=== PATIENT | female | born 1950 | race Caucasian/White ===

== ENCOUNTER 2018-11-06 02:04 | Outpatient (CLI) | payer MEDICARE, SELFPAY ==
[2018-11-06 11:13] LABS: Abs Immature Grans 0.02 k/cumm (0.0-0.09); Absolute Basophil Count 0.05 k/cumm (0.0-0.2); Absolute Eosinophil Count 0.17 k/cumm (0.0-0.7); Absolute Lymphocyte Count 2.63 k/cumm (1.2-3.4); Absolute Neutrophil Count 5.29 k/cumm (1.2-6.7); Basophils % 0.6; Eosinophils % 1.9; HGB 13.4 g/dL (12.0-15.5); Immature Grans % 0.2; Lymphocytes % 29.7; Mean Corp. HGB Concentration 32.7 g/dL (32.0-36.0); Mean Corpuscular Hemoglobin 30.8 pg (27.0-33.0); Mean Corpuscular Volume 94.3 fL (80-95); Mean Platelet Volume 11.1 fL (8.0-11.0); Monocytes % 7.9; Neutrophils % 59.7; Platelet Count 281 x1000/uL (130-400); RBC 4.35 m/cumm (4.00-5.20); RBC Distribution Width 15.4 % (11.7-14.6); White Blood Cell Count 8.86 k/cumm (4.4-10.8)
[2018-11-06 11:25] LABS: ALT 18 U/L (12-78); AST 17 U/L (15-37); Albumin 3.4 g/dL (3.4-5.0); Alkaline Phosphatase 73 U/L (46-116); Anion Gap 9.5 mmol/L (3-11); BUN 20 mg/dL (7-18); Bilirubin, Total 0.3 mg/dL (0.2-1.0); CO2 25.5 mmol/L (21.0-32.0); CREATININE 1.23 mg/dL (0.55-1.02); Calcium 9.4 mg/dL (8.5-10.1); Chloride 105 mmol/L (98-107); Estimated GFR 43.82 (mL/min/1.73m2); Glucose 82 mg/dL (70-100); Potassium 4.8 mmol/L (3.5-5.1); Sodium 140 mmol/L (136-145)
== END 2018-11-06 02:24 ==
PROVIDERS: PCP Nurse Practitioner Family; Visit Provider Internal Medicine
DX: M06.9 Rheumatoid arthritis, unspecified (principal); Z79.899 Other long term (current) drug therapy
CPT/HCPCS: 36415; 80053; 85025

== ENCOUNTER 2019-02-05 01:34 | Outpatient (CLI) | payer MEDICARE, SELFPAY ==
[2019-02-05 10:49] LABS: Abs Immature Grans 0.03 k/cumm (0.0-0.09); Absolute Basophil Count 0.06 k/cumm (0.0-0.2); Absolute Eosinophil Count 0.06 k/cumm (0.0-0.7); Absolute Lymphocyte Count 2.76 k/cumm (1.2-3.4); Absolute Monocyte Count 0.63 k/cumm (0.11-0.7); Absolute Neutrophil Count 4.78 k/cumm (1.2-6.7); Basophils % 0.7; Eosinophils % 0.7; HGB 13.7 g/dL (12.0-15.5); Immature Grans % 0.4; Lymphocytes % 33.2; Mean Corp. HGB Concentration 32.6 g/dL (32.0-36.0); Mean Corpuscular Hemoglobin 29.6 pg (27.0-33.0); Mean Corpuscular Volume 90.7 fL (80-95); Mean Platelet Volume 10.1 fL (8.0-11.0); Monocytes % 7.6; Neutrophils % 57.4; Platelet Count 285 x1000/uL (130-400); RBC 4.63 m/cumm (4.00-5.20); RBC Distribution Width 15.2 % (11.7-14.6); White Blood Cell Count 8.32 k/cumm (4.4-10.8)
[2019-02-05 11:40] LABS: ALT 20 U/L (12-78); AST 19 U/L (15-37); Albumin 3.6 g/dL (3.4-5.0); Alkaline Phosphatase 76 U/L (46-116); Anion Gap 10.3 mmol/L (3-11); BUN 21 mg/dL (7-18); Bilirubin, Total 0.4 mg/dL (0.2-1.0); CO2 24.7 mmol/L (21.0-32.0); CREATININE 1.23 mg/dL (0.55-1.02); Calcium 10.1 mg/dL (8.5-10.1); Chloride 104 mmol/L (98-107); Estimated GFR 43.68 (mL/min/1.73m2); Glucose 93 mg/dL (70-100); Potassium 4.8 mmol/L (3.5-5.1); Sodium 139 mmol/L (136-145); Total Protein 7.4 g/dL (6.4-8.2)
== END 2019-02-05 01:54 ==
PROVIDERS: PCP Nurse Practitioner Family; Visit Provider Internal Medicine
DX: M06.9 Rheumatoid arthritis, unspecified (principal); Z79.899 Other long term (current) drug therapy
CPT/HCPCS: 36415; 80053; 85025

== ENCOUNTER 2019-05-26 01:34 | Outpatient (CLI) | payer MEDICARE, SELFPAY ==
[2019-05-26 11:28] LABS: Abs Immature Grans 0.02 k/cumm (0.0-0.09); Absolute Basophil Count 0.04 k/cumm (0.0-0.2); Absolute Eosinophil Count 0.09 k/cumm (0.0-0.7); Absolute Lymphocyte Count 2.35 k/cumm (1.2-3.4); Absolute Monocyte Count 0.32 k/cumm (0.11-0.7); Absolute Neutrophil Count 4.66 k/cumm (1.2-6.7); Basophils % 0.5; Eosinophils % 1.2; HCT 40.3 % (36.0-46.0); HGB 13.3 g/dL (12.0-15.5); Immature Grans % 0.3; Lymphocytes % 31.4; Mean Corpuscular Hemoglobin 31.1 pg (27.0-33.0); Mean Corpuscular Volume 94.4 fL (80-95); Mean Platelet Volume 10.6 fL (8.0-11.0); Monocytes % 4.3; Neutrophils % 62.3; Platelet Count 278 x1000/uL (130-400); RBC 4.27 m/cumm (4.00-5.20); RBC Distribution Width 14.7 % (11.7-14.6); White Blood Cell Count 7.48 k/cumm (4.4-10.8)
[2019-05-26 11:34] LABS: ALT 21 U/L (12-78); AST 17 U/L (15-37); Albumin 2.6 g/dL (3.4-5.0); Alkaline Phosphatase 65 U/L (46-116); Anion Gap 11.7 mmol/L (3-11); BUN 20 mg/dL (7-18); Bilirubin, Total 0.3 mg/dL (0.2-1.0); CO2 22.3 mmol/L (21.0-32.0); CREATININE 1.17 mg/dL (0.55-1.02); Calcium 8.8 mg/dL (8.5-10.1); Chloride 107 mmol/L (98-107); Estimated GFR 46.28 (mL/min/1.73m2); Glucose 101 mg/dL (70-100); Potassium 4.7 mmol/L (3.5-5.1); Sodium 141 mmol/L (136-145); Total Protein 7.2 g/dL (6.4-8.2)
== END 2019-05-26 01:54 ==
PROVIDERS: PCP Nurse Practitioner Family; Visit Provider Internal Medicine
DX: M06.9 Rheumatoid arthritis, unspecified (principal); Z79.899 Other long term (current) drug therapy
CPT/HCPCS: 36415; 80053; 85025

== ENCOUNTER 2019-09-24 00:37 | Outpatient (CLI) | payer MEDICARE, SELFPAY ==
[2019-09-24 10:12] LABS: Abs Immature Grans 0.02 k/cumm (0.0-0.09); Absolute Basophil Count 0.05 k/cumm (0.0-0.2); Absolute Eosinophil Count 0.06 k/cumm (0.0-0.7); Absolute Lymphocyte Count 2.35 k/cumm (1.2-3.4); Absolute Monocyte Count 0.47 k/cumm (0.11-0.7); Absolute Neutrophil Count 4.98 k/cumm (1.2-6.7); Basophils % 0.6; Eosinophils % 0.8; HGB 13.5 g/dL (12.0-15.5); Immature Grans % 0.3; Lymphocytes % 29.6; Mean Corp. HGB Concentration 32.9 g/dL (32.0-36.0); Mean Corpuscular Hemoglobin 31.2 pg (27.0-33.0); Mean Corpuscular Volume 94.7 fL (80-95); Mean Platelet Volume 10.2 fL (8.0-11.0); Monocytes % 5.9; Neutrophils % 62.8; Platelet Count 316 x1000/uL (130-400); RBC 4.33 m/cumm (4.00-5.20); RBC Distribution Width 15.7 % (11.7-14.6); White Blood Cell Count 7.93 k/cumm (4.4-10.8)
[2019-09-24 10:24] LABS: ALT 26 U/L (14-59); AST 22 U/L (15-37); Albumin 3.7 g/dL (3.4-5.0); Alkaline Phosphatase 63 U/L (46-116); Anion Gap 11.1 mmol/L (3-11); BUN 19 mg/dL (7-18); Bilirubin, Total 0.4 mg/dL (0.2-1.0); CO2 24.9 mmol/L (21.0-32.0); CREATININE 1.19 mg/dL (0.55-1.02); Calcium 9.1 mg/dL (8.5-10.1); Chloride 105 mmol/L (98-107); Estimated GFR 45.38 (mL/min/1.73m2); Glucose 110 mg/dL (74-106); Sodium 141 mmol/L (136-145); Total Protein 7.3 g/dL (6.4-8.2)
== END 2019-09-24 00:57 ==
PROVIDERS: PCP Nurse Practitioner Family; Visit Provider Internal Medicine
DX: M06.9 Rheumatoid arthritis, unspecified (principal); Z79.899 Other long term (current) drug therapy
CPT/HCPCS: 36415; 80053; 85025

== ENCOUNTER 2019-11-02 07:49 | Emergency (ER) | payer MEDICARE, SELFPAY ==
[2019-11-02 07:53] VITALS: BP 127/75; PULSE 117; RESP 14; TEMP 36.5; O2SAT 97
--- NOTE | 2019-11-02 08:15 | ED.GENADUL_ITS ---
Discharge Plan Disposition Patient Disposition: HOME Condition: Stable Discharge Details Chief Complaint: GI Bleed Clinical Impression: Acute diverticulitis Primary Care Provider: Neema Larose ED Provider: Neftali Dawn Home Meds and New Rx's Prescriptions: New amoxicillin-pot clavulanate 875-125 mg tablet 1 tab PO BID 10 Days Qty: 20 RF: 0 Continued methotrexate sodium 2.5 MG tablet 3 tab PO QWEEK RF: 0 folic acid 1 MG tablet 1 mg PO DAILY RF: 0 hydroxychloroquine 200 MG tablet 200 mg PO DAILY RF: 0 aspirin [Aspir-81] 81 MG tablet,delayed release (DR/EC) 81 mg PO DAILY RF: 0 acetaminophen 650 MG tablet extended release 650 mg PO Q8H PRN (Reason: Pain) Qty: 15 RF: 0 Discharge Instructions Instructions: Diverticulitis (ED), Diverticulitis Diet (ED) Additional Instructions: Please call Dr. Woodard's office prior to restarting your methotrexate. Take Augmentin as prescribed, next dose will be this evening. I recommend you take an bcmu-wch-coqnbwv probiotic or live culture yogurt once daily while on this medication. Return to the emergency department for increased abdominal pain, rectal bleeding, or any other acute concerns. Medical Decision Making 68-year-old female presents from home with crampy lower abdominal pain, tenesmus, intermittent bright red bloody stools that started yesterday. She states approximate 5-6 episodes. She has not had syncope, she denies abdominal pain, no fever. She states that due to a fear of anesthesia, stemming from a childhood appendectomy, she has not had previous colonoscopy. Her past medical history is notable for seropositive rheumatoid arthritis for which she takes methotrexate (skipped yesterday's dose), hydroxychloroquine, daily baby aspirin, no current steroids. She is afebrile, her pulse is approximately 115, blood pressure 127/75. She does not exhibit significant abdominal tenderness, but does have dark bloody stool that is guaiac positive on exam. Differential diagnosis includes diverticulitis, mass, colitis. Patient had IV access established, screening laboratories obtained, given fluid bolus and referred for CT of the abdomen. White blood cell count is elevated 15, hematocrit normal at 43.7. Platelets 290. She has chronic renal insufficiency which is unchanged and creatinine is 1.2. LFTs unremarkable. Urinalysis without significant finding. CT does reveal acute diverticulitis of the transverse and descending colon. Given the patient's chronic renal insufficiency, rheumatoid arthritis, will opt to treat her with Augmentin rather than ciprofloxacin and Flagyl. She is tolerating liquids and solids by mouth. She is stable for outpatient management. Discussed with her anticipated course of resolution as well as return indications. ECG Data Attestation: I personally reviewed and interpreted this ECG (s) as follows: Prior ECG tracings: available for review Interpretation: Sinus tachycardia with a rate of 105, the QRS is noted to have a right bundle branch block pattern, similar to that of April 27, 2017, with repolarization abnormalities, no ST segment elevations noted. HPI General Mode of arrival: ambulatory . Date/Time Provider Initiated Documentation: 11/02/19 07:53 . Limitations to Documentation: no limitations . Information obtained by: patient . History of Present Illness 68 year old F presents to the emergency department with the chief complaint of Abdominal cramps and bloody stool, described as mild and moderate, Quality is described as other (Crampy), and is localized to the abdomen. Patient reports no radiation. Patient started experiencing this hour(s) and it has been intermittent. No relieving factors improve symptom(s), No exacerbating factors reported . Patient notes denies chest pain, fever/chills, malaise, nausea/vomiting, shortness of breath and syncope. Patient did receive the following treatments prior to arrival, none Related Data Home Medications Medication Instructions Recorded Confirmed folic acid 1 mg PO DAILY tab-cap 02/11/13 11/02/19 methotrexate sodium 3 tab PO QWEEK tab 02/11/13 11/02/19 aspirin [Aspir-81] 81 mg PO DAILY tab-cap 03/26/14 11/02/19 hydroxychloroquine 200 mg PO DAILY tab-cap 03/26/14 11/02/19 acetaminophen 650 mg PO Q8H PRN #15 tablet.er 04/18/17 11/02/19 amoxicillin-pot clavulanate 1 tab PO BID 10 Days #20 tab 11/02/19 Previous Rx's Medication Instructions Recorded acetaminophen 650 mg PO Q8H PRN #15 tablet.er 04/18/17 amoxicillin-pot clavulanate 1 tab PO BID 10 Days #20 tab 11/02/19 Allergies Allergy/AdvReac Type Severity Reaction Status Date / Time levofloxacin Allergy Rash/itchin Unverified 11/02/19 07:57 g indomethacin AdvReac Intermediate GI Upset Unverified 11/02/19 07:57 General Stated Complaint: GI Bleed MARY: 3 Review of Systems Narrative: No history of colonoscopy, due to fear of anesthesia. No recent illness. 8 systems reviewed and otherwise negative [facility] Medical History Hyperlipidemia (Chronic) Osteopenia (Inactive) Rheumatoid arthritis (Chronic 01/12/13) Followed by water engineer Dr. Venkat Woodard at [facility] Social History Smoking/Tobacco Use Status: Current every day Tobacco Type: cigarettes Alcohol Intake: never Drug use: Never Substance use type: does not use Do you feel safe at home: Yes Do you feel safe in your relationship?: Yes Exam Narrative Exam Narrative: GEN: awake, alert, oriented 3. Pleasant, well groomed, interactive. HEAD: Normocephalic, atraumatic ENT: Mucous membranes moist, oropharynx unremarkable, External ear exam unremarkable EYES: PERRL, EOMI NECK: Full ROM, no ALESHA, no menigismus CHEST/RESP: Nontender, clear to auscultation bilateral, no wheeze/rhonchi/rales CARDIOVASCULAR: Regular, tachycardic, no murmur, rub laura. 2+ Rad pulse laurel ateral ABDOMEN: Soft, nontender, no mass. +Bowel sounds. Rectal exam there is no mass, no tenderness, dark mucus was guaiac positive EXT: Full ROM, no edema, no rash Neuro: Grossly normal neurologic exam, conversant, interactive. Psych: Speech fluent, thoughts congruent, affect normal Course Vital Signs Vital signs: Vital Signs Temperature 36.5 C 11/02/19 07:53 Pulse 117 H 11/02/19 07:53 Respiratory Rate 14 11/02/19 07:53 Blood Pressure 127/75 11/02/19 07:53 Pulse Oximetry 97 11/02/19 07:53 Temperature 36.5 C 11/02/19 07:53 Temperature Source Temporal Artery Scan 11/02/19 07:53 Pulse 117 H 11/02/19 07:53 Respiratory Rate 14 11/02/19 07:53 Respiratory Effort Non-Labored 11/02/19 07:55 Blood Pressure 127/75 11/02/19 07:53 Blood Pressure Position Sitting 11/02/19 07:53 Pulse Oximetry 97 11/02/19 07:53 Oxygen Delivery Method Room Air 11/02/19 07:53 Oxygen Flow Rate 0 11/02/19 07:53 Pain Level 0 11/02/19 07:53
[2019-11-02] MEDS: Breeza Beverage 473 ML BTL PO ×2 (08:21→08:22)
[2019-11-02] MEDS: Omnipaque 350 MG/ML 50 ML BTL PO (08:21)
[2019-11-02] MEDS: Normal Saline Flush 10 ML SYR IVP (08:25)
[2019-11-02] MEDS: Normal Saline 1,000 ML 125 ML IV (08:25)
[2019-11-02 08:32] LABS: Abs Immature Grans 0.04 k/cumm (0.0-0.09); Absolute Monocyte Count 0.78 k/cumm (0.11-0.7); Basophils % 0.3; HCT 43.7 % (36.0-46.0); HGB 14.7 g/dL (12.0-15.5); Immature Grans % 0.3 %; Lymphocytes % 14.8; Mean Corp. HGB Concentration 33.6 g/dL (32.0-36.0); Mean Corpuscular Hemoglobin 31.7 pg (27.0-33.0); Mean Corpuscular Volume 94.2 fL (80-95); Mean Platelet Volume 10.1 fL (8.0-11.0); Neutrophils % 79.6; Platelet Count 290 x1000/uL (130-400); RBC 4.64 m/cumm (4.00-5.20); RBC Distribution Width 15.8 % (11.7-14.6); White Blood Cell Count 15.64 k/cumm (4.4-10.8)
[2019-11-02 08:33] LABS: Absolute Basophil Count 0.05 k/cumm (0.0-0.2); Absolute Lymphocyte Count 2.31 k/cumm (1.2-3.4); Absolute Neutrophil Count 12.45 k/cumm (1.2-6.7)
[2019-11-02 08:51] LABS: ALT 68 U/L (14-59); AST 30 U/L (15-37); Albumin 3.8 g/dL (3.4-5.0); Alkaline Phosphatase 75 U/L (46-116); Anion Gap 11.5 mmol/L (3-11); BUN 17 mg/dL (7-18); Bilirubin, Total 0.5 mg/dL (0.2-1.0); CO2 24.5 mmol/L (21.0-32.0); Calcium 9.5 mg/dL (8.5-10.1); Chloride 103 mmol/L (98-107); Estimated GFR 44.95 (mL/min/1.73m2); Glucose 124 mg/dL (74-106); Magnesium 1.8 mg/dL (1.8-2.4); Sodium 139 mmol/L (136-145); Total Protein 8.2 g/dL (6.4-8.2)
[2019-11-02 08:55] LABS: Prothrombin Time 10.2 sec (9.3-11.0)
[2019-11-02 09:59] LABS: Bilirubin Negative (Negative); Blood Trace-intact (Negative); Clarity Clear (Clear); Glucose Negative (Negative); Ketones Negative (Negative); Leukocyte Esterase Negative (Negative); Nitrite Negative (Negative); Urobilinogen 0.2 EU/dL (Up TO 0.2)
[2019-11-02 10:07] LABS: Bacteria Rare HPF (Negative); Crystals Negative HPF (Negative); Epithelial Cells Rare HPF (Negative); Mucus Trace (Negative); RBC 0-2 HPF (0-2); WBC 0-2 HPF (0-5)
[2019-11-02 10:08] LABS: C & S Indicated? No; Casts Negative LPF (Negative)
--- NOTE | 2019-11-02 11:18 | DI.CT_ITS ---
EXAM: CT ABDOMEN PELVIS W CLINICAL HISTORY: abd cramps, bloody stool, no colonoscopy. TECHNIQUE: Imaging Protocol: Axial computed tomography images with coronal and sagittal reformatted images were created and reviewed CONTRAST MATERIAL: Intravenous: Omnipaque 350 Contrast volume:50 cc Oral: yes COMPARISON: ABD PELVIS WITH CONTRAST from 05/06/2017 FINDINGS: ABDOMEN: Lung Bases: Normal where visualized. Liver: Normal density. No measurable mass. Gallbladder and biliary tract: No radiodense calculus or dilation. Pancreas: Normal density, no abnormal calcifications or inflammatory process. Spleen: Normal. Kidneys: Normal size, contour and axis. No radiodense stones or obstructive uropathy. There are bilat eral renal cysts. Adrenal glands: Incidentally noted adrenal lesion(s) < or = 1.0cm. If asymptomatic follow-up imaging is not needed. (PQRS Quality Measure- [employer], Vol.80,No.220, August Rules and R egulations.) Abdominal Aorta: Atherosclerosis. No aneurysmal dilatation. PELVIS: Bladder: Symmetric distention, no gross wall thickening. Bowel: There is diverticulosis of the colon. There is bowel wall thickening and pericolonic inflamma tory change seen in the distal transverse colon and the descending colon into the proximal sigmoid co rick. The findings are most consistent with acute diverticulitis. No free air or abscess is present. No evidence of bowel obstruction is seen. There is no evidence of an acute appendicitis. Peritoneal cavity: No ascites, collection or mesenteric inflammatory response. Bones: Degenerative changes are seen in the spine. Reproductive organs: Within normal limits. Lymph nodes: Unremarkable. Impression: Findings consistent with acute diverticulitis involving the distal transverse colon, descending colon and proximal sigmoid colon. No abscess or free air. Findings were discussed with the emergency department on the date of the examination. DATA REPOSITORY: All CT scans at this facility are submitted to the National Radiology Data Registry (NRDR) Dose Index Registry (DIR) with the [employer] (ACR). RADIATION OPTIMIZATION: All CT scans at this facility use at least one of these dose optimization te chniques: automated exposure control; mA and/or kV adjustment per patient size (includes targeted exa ms where dose is matched to clinical indication); or iterative reconstruction.
[2019-11-02] MEDS: Omnipaque 350 MG/ML 100 ML BTL 50 ML IJ (11:25)
[2019-11-02] MEDS: Amoxicillin 875/Clav. 125 TAB PO (11:58)
[2019-11-02 12:26] VITALS: BP 127/75; PULSE 117; RESP 14; TEMP 36.5; O2SAT 97
[2019-11-02 12:28] VITALS: BP 158/90; PULSE 87; O2SAT 98
== END 2019-11-02 12:35 | disposition home or self-care (01) ==
PROVIDERS: Emergency Provider Emergency Medicine; PCP Nurse Practitioner Family
DX: K57.32 Diverticulitis of large intestine without perforation or abscess without bleeding (principal)
CPT/HCPCS: 80053; 86850; 86900; 86901; 93005; 99285; 74177; 81003; 81015; 83735; 85025; 85610; 93010; 99284; J3490; Q9967

== ENCOUNTER 2019-11-11 02:17 | Outpatient (CLI) | payer MEDICARE, SELFPAY ==
[2019-11-11 11:36] LABS: Hemoglobin A1C 5.9 % (3.8-5.6)
[2019-11-11 11:59] LABS: Calculated LDL 182 mg/dL; Cholesterol 250 mg/dL (<200); HDL Cholesterol 48 mg/dL (40-60); Triglyceride 103 mg/dL (<150)
== END 2019-11-11 02:37 ==
PROVIDERS: PCP Nurse Practitioner Family; Visit Provider Nurse Practitioner Family
DX: R73.01 Impaired fasting glucose (principal); E78.5 Hyperlipidemia, unspecified
CPT/HCPCS: 36415; 80061; 83036

== ENCOUNTER 2019-11-19 14:12 | Outpatient (REF) | payer MEDICARE, SELFPAY | END 2019-11-19 14:32 | LOC: LBN 14:12 | PROVIDERS: PCP Nurse Practitioner Family; Visit Provider Nurse Practitioner Family | DX: N76.0 Acute vaginitis (principal) | CPT/HCPCS: 87480; 87510; 87660 ==

== ENCOUNTER 2020-05-19 19:38 | Outpatient (REF) | payer MEDICARE, SELFPAY ==
[2020-05-19 21:16] LABS: ALT 19 U/L (14-59); AST 20 U/L (15-37); Albumin 3.9 g/dL (3.4-5.0); Alkaline Phosphatase 54 U/L (46-116); Anion Gap 11.3 mmol/L (3-11); BUN 21 mg/dL (7-18); Bilirubin, Total 0.3 mg/dL (0.2-1.0); CO2 24.7 mmol/L (21.0-32.0); CREATININE 1.28 mg/dL (0.55-1.02); Calcium 9.3 mg/dL (8.5-10.1); Chloride 104 mmol/L (98-107); Estimated GFR 41.59 (mL/min/1.73m2); Glucose 89 mg/dL (74-106); Potassium 4.6 mmol/L (3.5-5.1); Sodium 140 mmol/L (136-145); Total Protein 7.4 g/dL (6.4-8.2)
[2020-05-19 21:38] LABS: Vitamin D 25 Total 31.1 ng/ml (30-100)
== END 2020-05-19 19:58 ==
LOC: LBN 19:38
PROVIDERS: PCP Nurse Practitioner Family; Visit Provider Nurse Practitioner Family
DX: M85.80 Other specified disorders of bone density and structure, unspecified site (principal); M06.9 Rheumatoid arthritis, unspecified
CPT/HCPCS: 80053; 82306

== ENCOUNTER 2020-06-01 03:29 | Outpatient (CLI) | payer MEDICARE, SELFPAY ==
[2020-06-01 12:26] LABS: Abs Immature Grans 0.03 10^3/uL (0.0-0.06); Absolute Basophil Count 0.09 10^3/uL (0.0-0.2); Absolute Monocyte Count 0.63 10^3/uL (0.1-0.8); Absolute Neutrophil Count 6.78 10^3/uL (1.2-6.7); Basophils % 0.8; HCT 40.3 % (36.0-46.0); HGB 13.2 g/dL (11.2-15.7); Immature Grans % 0.3; Lymphocytes % 29.2; MCH 31.1 pg (27.0-33.0); MCHC 32.8 % (32.0-36.0); MPV 10.3 fL (8.0-11.0); Monocytes % 5.9; Neutrophils % 63.8; Nucleated RBC 0 %; Platelet Count 287 10^3/uL (130-400); RBC 4.24 10^6/uL (3.93-5.22); RDW 15.2 % (11.7-14.6); RDW-SD 52.2 fL; WBC 10.63 10^3/uL (4.4-10.8)
[2020-06-01 12:43] LABS: Calculated LDL 71 mg/dL (<100); Cholesterol 157 mg/dL (<200); HDL Cholesterol 58 mg/dL (40-60); Triglyceride 142 mg/dL (<150)
== END 2020-06-01 03:49 ==
PROVIDERS: PCP Nurse Practitioner Family; Visit Provider Nurse Practitioner Family
DX: E78.5 Hyperlipidemia, unspecified (principal); M06.9 Rheumatoid arthritis, unspecified
CPT/HCPCS: 36415; 80061; 85025

== ENCOUNTER 2020-06-28 03:36 | Outpatient (CLI) | payer MEDICARE, SELFPAY ==
--- NOTE | 2020-06-28 08:45 | DI.MAMMO_ITS ---
EXAM: MG MAMMO SCREENING CLINICAL HISTORY: screening,Z12.39 TECHNIQUE: Bilateral full field digital CC and MLO mammographic images were obtained with 3D tomosyn thesis and utilizing computer aided detection (CAD). COMPARISON: None available.. FINDINGS: Masses/Architectural Distortion: None seen. Microcalcifications: No suspicious pleomorphic-type are seen. Scattered benign appearing calcificatio ns bilaterally. Skin Thickening/Nipple Retraction: None. IMPRESSION: 1. no specific features of malignancy noted. 2. Unless there is more urgent need, screening mammography is recommended, as per [employer] [place] [employer] guidelines. BI-RADS Category 2 - Benign Findings Breast Density - Category B - Scattered areas of fibroglandular density A negative radiographic report should not delay biopsy if a dominant or clinically suspicious mass is present. Up to ten percent of cancers are not identified on mammography. A negative report may reinforce clinical impression. Adenosis and dense breasts may obscure an underlying neoplasm. False positive reports average 6 to 10%. Patient will receive a letter notifying them of these results.
== END 2020-06-28 03:56 ==
PROVIDERS: PCP Nurse Practitioner Family; Visit Provider Nurse Practitioner Family
DX: Z12.31 Encounter for screening mammogram for malignant neoplasm of breast (principal); R92.2 Inconclusive mammogram
CPT/HCPCS: 77063; 77067

== ENCOUNTER 2020-07-11 11:46 | Outpatient (REF) | payer MEDICARE, SELFPAY ==
[2020-07-11 14:14] LABS: Anion Gap 8.9 mmol/L (3-11); BUN 16 mg/dL (7-18); CO2 25.1 mmol/L (21.0-32.0); Calcium 9.2 mg/dL (8.5-10.1); Chloride 107 mmol/L (98-107); Estimated GFR 44.81 (mL/min/1.73m2); Glucose 88 mg/dL (74-106); Potassium 4.5 mmol/L (3.5-5.1); Sodium 141 mmol/L (136-145)
== END 2020-07-11 12:06 ==
LOC: LBN 11:46
PROVIDERS: PCP Nurse Practitioner Family; Visit Provider Nurse Practitioner Family
DX: I10 Essential (primary) hypertension (principal)
CPT/HCPCS: 80048

== ENCOUNTER 2020-10-18 03:03 | Outpatient (CLI) | payer MEDICARE, SELFPAY ==
[2020-10-18 13:07] LABS: HCT 37.3 % (36.0-46.0); HGB 12.2 g/dL (11.2-15.7); MCHC 32.7 % (32.0-36.0); MCV 94.7 fL (80-95); MPV 10.1 fL (8.0-11.0); Platelet Count 335 10^3/uL (130-400); RBC 3.94 10^6/uL (3.93-5.22); RDW-SD 51.9 fL; WBC 9.48 10^3/uL (4.4-10.8)
[2020-10-18 13:16] LABS: ALT 19 U/L (14-59); AST 16 U/L (15-37); Albumin 3.5 g/dL (3.4-5.0); Alkaline Phosphatase 49 U/L (46-116); Anion Gap 9.4 mmol/L (3-11); BUN 20 mg/dL (7-18); Bilirubin, Total 0.2 mg/dL (0.2-1.0); CO2 24.6 mmol/L (21.0-32.0); CREATININE 1.29 mg/dL (0.55-1.02); Chloride 106 mmol/L (98-107); Estimated GFR 41.22 (mL/min/1.73m2); Glucose 93 mg/dL (74-106); Potassium 4.6 mmol/L (3.5-5.1); Sodium 140 mmol/L (136-145); Total Protein 7.1 g/dL (6.4-8.2)
== END 2020-10-18 03:23 ==
PROVIDERS: PCP Nurse Practitioner Family; Visit Provider Internal Medicine
DX: M06.9 Rheumatoid arthritis, unspecified (principal); Z79.899 Other long term (current) drug therapy; R79.89 Other specified abnormal findings of blood chemistry
CPT/HCPCS: 36415; 80053; 85027

== ENCOUNTER 2021-02-08 14:58 | Emergency (ER) | payer MEDICARE, SELFPAY ==
[2021-02-08] VITALS (36 sets, daily range): BP systolic 107–208; BP diastolic 66–124; PULSE 66–89; RESP 14–26; TEMP 36.5; O2SAT 97–100
--- NOTE | 2021-02-08 15:15 | RT.EKG_ITS ---
APPROVED REPORT Exam: Resting ECG Patient Location: E HR:79 bpm ECG Measurements Heart Rate 79 AXIS CO 129 P 69 QRSd 142 QRS 68 QT 419 T 32 QTc 479 Conclusion Sinus rhythm...normal P axis, V-rate 60- 99 Probable left atrial enlargement...P >50mS, <-0.10mV V1 Right bundle branch block...QRSd>120, terminal axis(90,270)
--- NOTE | 2021-02-08 15:45 | DI.CT_ITS ---
EXAM: CT HEAD WO CLINICAL HISTORY: Left jaw and left arm pain. TECHNIQUE: Imaging Protocol: Axial computed tomography images with coronal and sagittal reformatted images were created and reviewed COMPARISON: No exams were available for comparison FINDINGS: There are no skull fractures nor fluid in the visualized paranasal sinuses. There is no evidence of intracranial hemorrhage, mass effect, or shift of midline structures. There are no extra-axial fluid collections. The ventricles are not enlarged or shifted and there is no blo od within the ventricular system nor within the basal cisterns. IMPRESSION: No acute intracranial findings on this noninfused CT scan of the brain. RADIATION DOSE DELIVERED: 674.64mGy.cm Total DLP DATA REPOSITORY: All CT scans at this facility are submitted to the National Radiology Data Registry (NRDR) Dose Index Registry (DIR) with the [employer] (ACR). RADIATION OPTIMIZATION: All CT scans at this facility use at least one of these dose optimization te chniques: automated exposure control; mA and/or kV adjustment per patient size (includes targeted exa ms where dose is matched to clinical indication); or iterative reconstruction.
--- NOTE | 2021-02-08 15:45 | DI.RAD_ITS ---
EXAM: XR HUMERUS LT CLINICAL HISTORY: Humerus pain. TECHNIQUE: 2D digital imaging was performed. COMPARISON: No exams were available for comparison FINDINGS: There is no evidence of fracture. No dislocation. No radiopaque foreign body. No osseous lesions. IMPRESSION: DATA REPOSITORY: RADIATION DOSE DELIVERED:
--- NOTE | 2021-02-08 15:45 | RT.EKG_ITS ---
APPROVED REPORT Exam: Resting ECG Patient Location: E HR:72 bpm ECG Measurements Heart Rate 72 AXIS NE 139 P 70 QRSd 143 QRS -39 QT 436 T 39 QTc 477 Conclusion Sinus rhythm...normal P axis, V-rate 60- 99 Right bundle branch block...QRSd>120, terminal axis(90,270)
--- NOTE | 2021-02-08 15:45 | DI.RAD_ITS ---
EXAM: XR CHEST 2V PA LATERAL CLINICAL HISTORY: Left jaw pain and left humerus pain. TECHNIQUE: 2D digital imaging was performed. COMPARISON: No exams were available for comparison FINDINGS: Heart size is normal. The mediastinum is not widened. Lungs are clear. No infiltrates nor pleural effusions. IMPRESSION: No acute pulmonary findings. DATA REPOSITORY: RADIATION DOSE DELIVERED:
--- NOTE | 2021-02-08 15:54 | ED.GENADUL_ITS ---
Discharge Plan Disposition Patient Disposition: HOME Condition: Improving Discharge Details Clinical Impression: Rheumatoid arthritis, Arm pain, left Primary Care Provider: Neema Larose ED Provider: Neftali Dawn Home Meds and New Rx's Prescriptions: Continued losartan 50 mg tablet 75 mg PO DAILY Qty: 135 RF: 4 rosuvastatin 10 mg tablet 10 mg PO DAILY Qty: 90 RF: 4 folic acid 1 MG tablet 1 mg PO DAILY RF: 0 aspirin [Aspir-81] 81 MG tablet,delayed release (DR/EC) 81 mg PO DAILY RF: 0 methotrexate sodium 2.5 mg tablet 5 mg PO QWEEK RF: 0 hydroxychloroquine 200 mg tablet 200 mg PO DAILY RF: 0 Discharge Instructions Additional Instructions: Your work-up today included CAT scan of the head, chest x-ray, x-ray of the left humerus, as well as blood work including comprehensive panel, complete blood count, cardiac troponin. May continue Tylenol as needed for pain. Apply warm heat to areas to promote circulation. Return for the development of a rash, fever, worsening pain, any other acute concerns Please follow-up with your doctor if not improving in 3 days time. Medical Decision Making 70-year-old female with history of rheumatoid arthritis presents from home with 2 to 4 days of left jaw pain and left humerus pain intermittently. Does not feel like previous flares of rheumatoid arthritis. No fall or injury. Denies chest pain or shortness of breath. She is well-appearing, interactive, no acute distress with a reassuring exam. During the exam she also noted a history of recent pounding of her heart. And correlated this with PVC noted on the monitor during my exam. Exam is otherwise unrevealing. She is in a sinus rhythm with a rate bundle-branch block. Differential gnosis is broad including unlikely, but possible CVA, ACS, metastatic lesion. Given the PVC noted, would consider sinus arrhythmia, dehydration, electrolyte abnormalities. And given that she takes methotrexate, do feel that screening blood work with CBC should be obtained. IV access established, labs obtained, patient referred for x-ray of chest and left humerus. X-ray, CT scan unremarkable. Labs are reassuring. Note of white count 12, normal CRP and troponin negative. She does appear somewhat dehydrated over baseline. Patient improved following 500 cc normal saline. She was observed on repeat troponin obtained and negative. Discussed with the patient reassuring nature of today's evaluation. She has no significant further pain and declines Tylenol at this time. We will discharge to home. She will return for recurrent or recrudescence of pain, otherwise follow-up with primary care. She is stable and improved at this time. Lab Data Lab results reviewed: Yes I reviewed the patient's lab results. Labs: Laboratory Results - last 24 hr 02/08/21 02/08/21 15:50 15:50 WBC 12.13 H RBC 4.18 Hgb 13.2 Hct 40.3 MCV 96.4 H MCH 31.6 MCHC 32.8 RDW 14.4 Plt Count 319 MPV 9.8 Immature Gran % 0.4 Neutrophils % 64.3 Lymphocytes % 29.4 Monocytes % 5.4 Eosinophils % 0.0 Basophils % 0.5 Nucleated RBC % 0 Absolute Neutrophils 7.80 H Absolute Lymphocytes 3.57 H Absolute Monocytes 0.66 Absolute Eosinophils 0.00 Absolute Basophils 0.06 Sodium 142 Potassium 4.6 Chloride 106 Carbon Dioxide 23.6 Anion Gap 12.4 H BUN 25 H Creatinine 1.4 H Estimated GFR/1.73 m2 37.39 Glucose 96 Calcium 9.7 Magnesium 2.0 Total Bilirubin 0.3 AST 18 ALT 23 Alkaline Phosphatase 64 Troponin I < 0.05 C-Reactive Protein < 0.05 Total Protein 8.1 Albumin 3.9 HPI General Mode of arrival: ambulatory . Date/Time Provider Initiated Documentation: 02/08/21 14:59 . Limitations to Documentation: no limitations . Information obtained by: patient . History of Present Illness 70 year old F presents to the emergency department with the chief complaint of 2 to 3 days left jaw and left humerus pain, described as mild, Quality is described as dull, and is localized to the face, left and upper extremity. Patient reports no radiation. Patient started experiencing this day(s) and it has been intermittent. No relieving factors improve symptom(s), No exacerbating factors reported . Patient notes denies chest pain, cough, fever/chills, headaches, loss of appetite, nausea/vomiting, rash, shortness of breath, syncope and weakness. Patient did receive the following treatments prior to arrival, none Related Data Home Medications Medication Instructions Recorded Confirmed folic acid 1 mg PO DAILY tab-cap 02/11/13 02/08/21 aspirin [Aspir-81] 81 mg PO DAILY tab-cap 03/26/14 02/08/21 hydroxychloroquine 200 mg tablet 200 mg PO DAILY tab-cap 05/19/20 02/08/21 methotrexate sodium 2.5 mg tablet 5 mg PO QWEEK tab 05/19/20 02/08/21 losartan 50 mg tablet 75 mg PO DAILY #135 tab-cap 08/22/20 02/08/21 rosuvastatin 10 mg tablet 10 mg PO DAILY #90 tab 11/28/20 02/08/21 Previous Rx's Medication Instructions Recorded losartan 50 mg tablet 75 mg PO DAILY #135 tab-cap 08/22/20 rosuvastatin 10 mg tablet 10 mg PO DAILY #90 tab 11/28/20 Allergies Allergy/AdvReac Type Severity Reaction Status Date / Time levofloxacin Allergy Rash/itchin Unverified 02/08/21 15:39 g indomethacin AdvReac Intermediate GI Upset Unverified 02/08/21 15:39 General Stated Complaint: Orthopedic MARY: 3 Review of Systems Narrative: Takes methotrexate, aspirin, losartan daily. No recent illness. No sniffles, sneeze, cough, fever, chills, chest pain, shortness of breath. No fall or injury. 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 Venkat Woodard Surgical History S/P appendectomy (~1960) Family History Mother , at 77 of alzheimers Alzheimer's dementia Heart disease Myocardial infarction Breast cancer In her 40s Father , at 88 Heart disease Stroke Brother , at 21 from cancer Cancer Unknown type Brother , at 5 from brain tumor Brain tumor Sister , at 49 of breast cancer Breast cancer Sister , in her 50s of [address] Heart disease Myocardial infarction Son No problems noted. Son No problems noted. Daughter Crohn's disease Colon cancer Daughter Crohn's disease Maternal Grandfather No problems noted. Maternal Grandmother No problems noted. Paternal Grandfather No problems noted. Paternal Grandmother No problems noted. Social History Smoking/Tobacco Use Status: Current-Occasional Tobacco Type: cigarettes Quit status: has quit before Second Hand Exposure: Yes Smoking risk assessment performed?: Yes Alcohol Intake: current Alcohol Intake frequency: holidays/special occasions only Alcohol type: beer Drug use: Never Substance use type: does not use Caregiver/Support person: No Household members: spouse Housing: house Communication Needs: None Do you need help understanding health information?: Never Pets and animals: Yes Pets and animals: dog(s) Sexually active: Yes Do you think of yourself as: straight/heterosexual Current gender identity: female What is your relationship status?: How often do you talk on the phone with friends or family?: three or more times per week How often do you get together with friends or relatives?: three or more times p er week Do you belong to any clubs or organized social groups?: no Panel score (0-1 are the most socially isolated patients): 2 What type of physical activity do you participate in: walking Duration: 45-60 minutes/day Frequency: daily Sabiha/Christian: Roman Catholic Seatbelt use: always Drive intox or ride w/intox hazmat cdl a driver: No Do you feel safe at home: Yes Do you feel safe in your relationship?: Yes History History 3 Para Hx # Term Pregnancies Multiple births 1 Hx # Pregnancies Ectopic pregnancies AB induced Hx Number of Living Children 4 AB spontaneous Exam Narrative Exam Narrative: GEN: awake, alert, oriented 3. Pleasant, well groomed, interactive. HEAD: Normocephalic, atraumatic ENT: Mucous membranes moist, oropharynx unremarkable, External ear exam unremarkable EYES: PERRL, EOMI NECK: Full ROM, no ALESHA, no menigismus CHEST/RESP: Nontender, clear to auscultation bilateral, no wheeze/rhonchi/rales CARDIOVASCULAR: RRR, no murmur, rub laura. 2+ Rad pulse bilateral ABDOMEN: Soft, nontender, no mass. +Bowel sounds EXT: Nontender and fully mobile bilaterally, no rash or swelling, full ROM, no edema, no rash Neuro: Grossly normal neurologic exam, conversant, interactive. Psych: Speech fluent, thoughts congruent, affect normal Course Vital Signs Vital signs: Vital Signs Temperature 36.5 C 02/08/21 15:10 Pulse 81 02/08/21 15:10 Respiratory Rate 16 02/08/21 15:10 Blood Pressure 141/72 H 02/08/21 15:10 Pulse Oximetry 97 02/08/21 15:10 Temperature 36.5 C 02/08/21 15:10 Temperature Source Temporal Artery Scan 02/08/21 15:10 Pulse 76 02/08/21 15:31 Pulse 82 02/08/21 15:40 Respiratory Rate 15 02/08/21 15:40 Respiratory Effort Non-Labored 02/08/21 15:35 Respiratory Depth Normal 02/08/21 15:35 Respiratory Pattern Normal 02/08/21 15:35 Blood Pressure 194/71 H 02/08/21 15:31 Blood Pressure Mean 104 02/08/21 15:31 Blood Pressure Position Sitting 02/08/21 15:10 Pulse Oximetry 99 02/08/21 15:40 Oxygen Delivery Method Room Air 02/08/21 15:10 Oxygen Flow Rate 0 02/08/21 15:10 Pain Level 3 02/08/21 15:10
[2021-02-08] MEDS: Normal Saline 1,000 ML 150 ML IV (15:58)
[2021-02-08 16:12] LABS: Abs Immature Grans 0.05 10^3/uL (0.0-0.06); Absolute Basophil Count 0.06 10^3/uL (0.0-0.2); Absolute Lymphocyte Count 3.57 10^3/uL (1.2-3.4); Basophils % 0.5; HCT 40.3 % (36.0-46.0); HGB 13.2 g/dL (11.2-15.7); Immature Grans % 0.4; Lymphocytes % 29.4; MCH 31.6 pg (27.0-33.0); MCHC 32.8 % (32.0-36.0); MCV 96.4 fL (80-95); MPV 9.8 fL (8.0-11.0); Monocytes % 5.4; Neutrophils % 64.3; Nucleated RBC 0 %; Platelet Count 319 10^3/uL (130-400); RBC 4.18 10^6/uL (3.93-5.22); RDW 14.4 % (11.7-14.6); RDW-SD 50.6 fL; WBC 12.13 10^3/uL (4.4-10.8)
[2021-02-08 16:13] LABS: Absolute Monocyte Count 0.66 10^3/uL (0.1-0.8)
[2021-02-08 16:17] LABS: ALT 23 U/L (14-59); AST 18 U/L (15-37); Albumin 3.9 g/dL (3.4-5.0); Alkaline Phosphatase 64 U/L (46-116); Anion Gap 12.4 mmol/L (3-11); BUN 25 mg/dL (7-18); Bilirubin, Total 0.3 mg/dL (0.2-1.0); CO2 23.6 mmol/L (21.0-32.0); CREATININE 1.4 mg/dL (0.55-1.02); Calcium 9.7 mg/dL (8.5-10.1); Chloride 106 mmol/L (98-107); Estimated GFR 37.39 (mL/min/1.73m2); Glucose 96 mg/dL (74-106); Potassium 4.6 mmol/L (3.5-5.1); Sodium 142 mmol/L (136-145); Total Protein 8.1 g/dL (6.4-8.2)
[2021-02-08 16:26] LABS: C-Reactive Protein < 0.05 mg/dL (0.0-0.3); Troponin I < 0.05 ng/mL (<0.06)
--- NOTE | 2021-02-08 17:59 | DI.VRAD_ITS ---
PROCEDURE INFORMATION: Exam: CT Head Without Contrast Exam date and time: 02/08/2021 3:55 PM Age: 70 years old Clinical indication: Other: Left jaw and left arm pain TECHNIQUE: Imaging protocol: Computed tomography of the head without contrast. Radiation optimization: All CT scans at this facility use at least one of these dose optimization techniques: automated exposure control; mA and/or kV adjustment per patient size (includes targeted exams where dose is matched to clinical indication); or iterative reconstruction. COMPARISON: No relevant prior studies available. FINDINGS: Brain: There is mild diffuse cerebral volume loss. There is no evidence for acute intra-axial or extra-axial hemorrhage. There is no intracranial mass or mass effect. The basilar cisterns are patent. There is normal garza-white differentiation throughout the brain. There is no CT evidence of acute cortical infarct. Cerebral ventricles: There is mild ventriculomegaly in proportion to the mild diffuse cerebral volume loss. Bones/joints: Unremarkable. No acute fracture. Paranasal sinuses: Visualized sinuses are unremarkable. No fluid levels. Mastoid air cells: Visualized mastoid air cells are well aerated. Soft tissues: Unremarkable. IMPRESSION: 1. No acute intracranial process identified. 2. Mild diffuse cerebral volume loss. Dictated and Authenticated by: Dipesh Sood MD. Ordering:MAHESH Lindsay MD
--- NOTE | 2021-02-08 18:01 | DI.VRAD_ITS ---
PROCEDURE INFORMATION: Exam: XR Left Humerus Exam date and time: 02/08/2021 3:55 PM Age: 70 years old Clinical indication: Other: Humerus pain TECHNIQUE: Imaging protocol: XR Left humerus. Views: 2 or more views. COMPARISON: No relevant prior studies available. FINDINGS: Bones/joints: Osseous mineralization is normal. There are no inflammatory osseous erosive changes. The joint spaces are maintained without degenerative changes. There are no acute displaced fractures or subluxations. Soft tissues: Normal. IMPRESSION: No acute fractures identified. Dictated and Authenticated by: Dipesh Sood MD. Ordering:MAHESH Lindsay MD
--- NOTE | 2021-02-08 18:03 | DI.VRAD_ITS ---
PROCEDURE INFORMATION: Exam: XR Chest Exam date and time: 02/08/2021 3:55 PM Age: 70 years old Clinical indication: Other: Left jaw pain and left humerus pain TECHNIQUE: Imaging protocol: XR of the chest. Views: 2 views. COMPARISON: No relevant prior studies available. FINDINGS: Lungs: The lungs are clear. There is no pulmonary vascular congestion. Pleural spaces: There are no pleural effusions present. There is no evidence of pneumothorax. Heart/Mediastinum: The cardiomediastinal silhouette is within normal limits. Bones/joints: Unremarkable. IMPRESSION: No active cardiopulmonary disease identified. Dictated and Authenticated by: Dipesh Sood MD. Ordering:MAHESH Lindsay MD
[2021-02-08 19:25] LABS: Troponin I < 0.05 ng/mL (<0.06)
== END 2021-02-08 19:44 | disposition home or self-care (01) ==
PROVIDERS: Emergency Provider Emergency Medicine; PCP Nurse Practitioner Family
DX: M79.622 Pain in left upper arm (principal); R68.84 Jaw pain; I49.3 Ventricular premature depolarization; E86.0 Dehydration; M06.9 Rheumatoid arthritis, unspecified
CPT/HCPCS: 80053; 93005; 96360; 96361; 99285; 70450; 71046; 73060; 83735; 84484; 85025; 86140; 93010

== ENCOUNTER 2021-03-17 11:02 | Day surgery (SDC) | payer MEDICARE, SELFPAY ==
[2021-03-17] VITALS (7 sets, daily range): BP systolic 101–176; BP diastolic 41–91; PULSE 72–83; RESP 15–26; TEMP 36.3–36.9; O2SAT 95–99; BMI 31.8
--- NOTE | 2021-03-17 11:41 | W.ED.GENAD ---
Discharge Plan Disposition Patient Disposition: [facility] INPATIENT Condition: Stable Discharge Details Clinical Impression: Esophageal foreign body Primary Care Provider: Neema Larose ED Provider: Rosalba Mukherjee Home Meds and New Rx's Prescriptions: No Action losartan 50 mg tablet 75 mg PO DAILY Qty: 135 RF: 4 rosuvastatin 10 mg tablet 10 mg PO DAILY Qty: 90 RF: 4 folic acid 1 MG tablet 1 mg PO DAILY RF: 0 aspirin [Aspir-81] 81 MG tablet,delayed release (DR/EC) 81 mg PO DAILY RF: 0 methotrexate sodium 2.5 mg tablet 5 mg PO QWEEK RF: 0 hydroxychloroquine 200 mg tablet 200 mg PO DAILY RF: 0 Medical Decision Making 62-year-old female presents with sensation of food bolus stuck in throat since last night. Patient appears comfortable and nontoxic. Her blood pressure is high but remainder of her vitals are within normal limits. Normal oropharynx. Lungs clear. Abdomen soft nontender. Attempted effervescent granules x2 with some relief but then symptoms returned. Patient has been unable to swallow any water or flores lashonda after this. Place an IV and gave glucagon IV. Soft tissue neck x-ray notes slightly thickened contour of the epiglottis but clinically does not appear consistent with epiglottitis as she denies any fever, sore throat and she is not drooling. She denies any change in states she is still unable to swallow any water or flores lashonda. Chest x-ray negative for acute findings. Case discussed with surgery on-call who will plan to take patient to the OR. Medical Records Medical records reviewed: Yes I reviewed the patient's medical records. Imaging Data Radiologic Study: Radiologist's impression: XR SOFT TISSUE NECK CLINICAL HISTORY: difficulty swallowing, r/o foreign body TECHNIQUE: COMPARISON: No exams were available for comparison FINDINGS: AP and lateral soft tissue views of the neck were obtained. The epiglottis has a slightly thickened contour. Possibility of epiglottitis is raised, please correlate clinically. No other significant soft tissue abnormality identified. No evidence of retro pharyngeal mass or thickening. XR CHEST 2V PA LATERAL CLINICAL HISTORY: difficulty swallowing, r/o foreign body TECHNIQUE: 2D digital imaging was performed. COMPARISON: CR,XR XR CHEST 2V PA LATERAL from 02/08/2021 FINDINGS: The heart is not enlarged. The lungs are clear and well expanded. No pleural effusion seen. Mediastinal contours appear intact. IMPRESSION: Normal chest. HPI General Mode of arrival: ambulatory. Date/Time Provider Initiated Documentation: 03/17/21 11:21. Limitations to Documentation: no limitations. Information obtained by: patient. HPI Narrative: Patient is a 70-year-old female who presents to the ED with a complaint of the sensation of food stuck in her throat since last night. Patient states she was eating ham for dinner when she felt that it became stuck. She states she has not been unable to eat and drink since then as she is unable to swallow and keep any liquids or food down. She states when she attempts to swallow the liquid or food come directly back up. She denies any sore throat, vomiting, difficulty breathing, chest pain or abdominal pain. Related Data Home Medications Medication Instructions Recorded Confirmed folic acid 1 mg PO DAILY tab-cap 02/11/13 03/17/21 aspirin [Aspir-81] 81 mg PO DAILY tab-cap 03/26/14 03/17/21 hydroxychloroquine 200 mg tablet 200 mg PO DAILY tab-cap 05/19/20 03/17/21 methotrexate sodium 2.5 mg tablet 5 mg PO QWEEK tab 05/19/20 03/17/21 losartan 50 mg tablet 75 mg PO DAILY #135 tab-cap 08/22/20 03/17/21 rosuvastatin 10 mg tablet 10 mg PO DAILY #90 tab 11/28/20 03/17/21 Previous Rx's Medication Instructions Recorded losartan 50 mg tablet 75 mg PO DAILY #135 tab-cap 08/22/20 rosuvastatin 10 mg tablet 10 mg PO DAILY #90 tab 11/28/20 Allergies Allergy/AdvReac Type Severity Reaction Status Date / Time levofloxacin Allergy Rash/itchin Unverified 03/17/21 11:08 g indomethacin AdvReac Intermediate GI Upset Unverified 03/17/21 11:08 General Stated Complaint: ThroatFB MARY: 3 Review of Systems All systems reviewed & are unremarkable except as noted in HPI and below Constitutional Constitutional: Reports as per HPI, Denies chills and Denies fever(s) Eyes Eyes: Denies blurry vision ENT Ears, Nose, Mouth, and Throat: Reports dysphagia, Denies dizziness, Denies sore throat and Denies throat swelling Cardiovascular Cardiovascular: Denies chest pain and Denies dyspnea Respiratory Respiratory: Denies cough and Denies dyspnea Gastrointestinal Gastrointestinal: Denies abdominal pain, Reports dysphagia, Denies diarrhea and Denies vomiting Genitourinary Genitourinary: Denies hematuria and Denies dysuria Musculoskeletal Musculoskeletal: Denies back pain and Denies numbness Integumentary/Breasts Skin/Breast: Denies lesions and Denies rash Neurologic Neurologic: Denies dizziness, Denies localized weakness and Denies numbness Allergic/Immunologic Allergic/Immunologic: Denies throat swelling [facility] Medical History Chronic kidney disease Followed by [facility] Nephrology Essential hypertension Generalized anxiety disorder Hyperlipidemia Major depressive disorder Osteopenia Prediabetes Rheumatoid arthritis Followed by [facility] real estate specialist Dr. Venkat Woodard Surgical History S/P appendectomy (~1960) Family History Mother , at 77 of alzheimers Alzheimer's dementia Heart disease Myocardial infarction Breast cancer In her 40s Father , at 88 Heart disease Stroke Brother , at 21 from cancer Cancer Unknown type Brother , at 5 from brain tumor Brain tumor Sister , at 49 of breast cancer Breast cancer Sister , in her 50s of [place] Heart disease Myocardial infarction Son No problems noted. Son No problems noted. Daughter Crohn's disease Colon cancer Daughter Crohn's disease Maternal Grandfather No problems noted. Maternal Grandmother No problems noted. Paternal Grandfather No problems noted. Paternal Grandmother No problems noted. Social History Smoking/Tobacco Use Status: Current-Occasional Tobacco Type: cigarettes Quit status: has quit before Second Hand Exposure: Yes Smoking risk assessment performed?: Yes Alcohol Intake: current Alcohol Intake frequency: holidays/special occasions only Alcohol type: beer Drug use: Never Substance use type: does not use Caregiver/Support person: No Household members: spouse Housing: house Communication Needs: None Do you need help understanding health information?: Never Pets and animals: Yes Pets and animals: dog(s) Sexually active: Yes Do you think of yourself as: straight/heterosexual Current gender identity: female What is your relationship status?: How often do you talk on the phone with friends or family?: three or more times per week How often do you get together with friends or relatives?: three or more times per week Do you belong to any clubs or organized social groups?: no Panel score (0-1 are the most socially isolated patients): 2 What type of physical activity do you participate in: walking Duration: 45-60 minutes/day Frequency: daily Sabiha/Sabianist: Restoration Seatbelt use: always Drive intox or ride w/intox cdl driver: No Do you feel safe at home: Yes Do you feel safe in your relationship?: Yes History History 3 Para Hx # Term Pregnancies Multiple births 1 Hx # Pregnancies Ectopic pregnancies AB induced Hx Number of Living Children 4 AB spontaneous Exam Const General: cooperative, healthy appearing and no acute distress HENMT Head: normal to inspection Ears: hearing grossly normal bilaterally and external ears normal Face and sinus: normal facial exam Mouth: oral mucosae normal, tongue normal, oropharynx normal and moist mucous membranes Throat: posterior oropharynx normal Eyes General: appearance normal, both eyes and all related structures Pupils: PERRL EOM: EOM intact bilaterally Neck Neck: normal visual inspection and No submandibular swelling Lymphatic: no lymphadenopathy noted Chest Chest: normal inspection of the chest and no tenderness Resp Effort & Inspection: normal respiratory effort and able to speak in complete sentences Auscultation: clear to auscultation bilaterally Cardio Rate: regular rate Rhythm: regular rhythm GI Inspection: normal to inspection Palpation: soft, not firm, not rigid and nontender Auscultation: normal bowel sounds Skin General skin exam: no rashes or lesions noted Neuro General: patient alert, patient awake and patient oriented x3 Cognition: normal cognition Speech: speech normal Motor: muscle tone normal throughout Sensory Exam: no sensory deficits noted Extrem General: normal to inspection, full ROM, capillary refill normal, no calf tenderness bilaterally and no edema Psych Appearance: grossly normal Mental Status: mental status grossly normal Speech and Movement: speech and movement normal Affect: normal affect Course Vital Signs Vital signs: Vital Signs Temperature 98.1 F 03/17/21 11:06 Pulse 83 03/17/21 11:06 Respiratory Rate 15 03/17/21 11:06 Blood Pressure 176/91 H 03/17/21 11:06 Pulse Oximetry 98 03/17/21 11:06 Temperature 98.1 F 03/17/21 11:06 Temperature Source Skin 03/17/21 11:06 Pulse 83 03/17/21 11:06 Respiratory Rate 15 03/17/21 11:06 Respiratory Effort Non-Labored 03/17/21 11:09 Blood Pressure 176/91 H 03/17/21 11:06 Blood Pressure Position Sitting 03/17/21 11:06 Pulse Oximetry 98 03/17/21 11:06 Oxygen Delivery Method Room Air 03/17/21 11:06 Oxygen Flow Rate 0 03/17/21 11:06 Pain Level 0 03/17/21 11:06
[2021-03-17] MEDS: Simethicone/Sod Bicarb/Cit Ac, 4 gram PACKET 1 PACKET PO (12:12)
--- NOTE | 2021-03-17 12:52 | DI.RAD_ITS ---
Exam(s) XR CHEST 2V PA LATERAL EXAM: XR CHEST 2V PA LATERAL CLINICAL HISTORY: difficulty swallowing, r/o foreign body TECHNIQUE: 2D digital imaging was performed. COMPARISON: CR,XR XR CHEST 2V PA LATERAL from 02/08/2021 FINDINGS: The heart is not enlarged. The lungs are clear and well expanded. No pleural effusion seen. Mediastin al contours appear intact. IMPRESSION: Normal chest. RADIATION DOSE DELIVERED: Total DLP
--- NOTE | 2021-03-17 12:57 | DI.RAD_ITS ---
Exam(s) XR SOFT TISSUE NECK EXAM: XR SOFT TISSUE NECK CLINICAL HISTORY: difficulty swallowing, r/o foreign body TECHNIQUE: COMPARISON: No exams were available for comparison FINDINGS: AP and lateral soft tissue views of the neck were obtained. The epiglottis has a slightly thickened contour. Possibility of epiglottitis is raised, please correlate clinically. No other significant s oft tissue abnormality identified. No evidence of retro pharyngeal mass or thickening. IMPRESSION: RADIATION DOSE DELIVERED: Total DLP
[2021-03-17] MEDS: Glucagon 1 MG VIAL IVP (13:13)
--- NOTE | 2021-03-17 14:10 | ANES.PREOP_ITS ---
General Info Date of Service Date Performed: 03/17/21 Height: 5 ft 3 in Weight: 81.647 kg Body Mass Index (BMI): 31.8 Meds Allergies and Home Medications Allergies Allergy/AdvReac Type Severity Reaction Status Date / Time levofloxacin Allergy Rash/itchin Unverified 03/17/21 11:08 g indomethacin AdvReac Intermediate GI Upset Unverified 03/17/21 11:08 Home Medication Medication Instructions Recorded folic acid 1 mg PO DAILY tab-cap 02/11/13 aspirin [Aspir-81] 81 mg PO DAILY tab-cap 03/26/14 hydroxychloroquine 200 mg tablet 200 mg PO DAILY tab-cap 05/19/20 methotrexate sodium 2.5 mg tablet 5 mg PO QWEEK tab 05/19/20 losartan 50 mg tablet 75 mg PO DAILY #135 tab-cap 08/22/20 rosuvastatin 10 mg tablet 10 mg PO DAILY #90 tab 11/28/20 Current Visit Medications: Current Medications Generic Name Dose Route Start Last Admin Trade Name Freq PRN Reason Stop Dose Admin IV Miscellaneous Supplies 1 each 03/17/21 12:45 Iv Access IV DIRECTED CARLOS Sodium Chloride 0 ml 03/17/21 12:35 Normal Saline Flush 10 Ml Syr IVP PRN PRN PFSH Active Problems Active Problems: Problem Status Onset Code Arm pain, left M79.602 Rheumatoid arthritis M06.9 Essential hypertension I10 Chronic kidney disease N18.9 Prediabetes R73.03 Hyperlipidemia E78.5 Generalized anxiety disorder F41.1 Major depressive disorder F32.9 Medical History Medical History Chronic kidney disease Followed by [facility] Nephrology Essential hypertension Generalized anxiety disorder Hyperlipidemia Major depressive disorder Osteopenia Prediabetes Rheumatoid arthritis 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 Venkat Woodard Surgical History Surgical History S/P appendectomy (~1960) Tobacco Smoking/Tobacco Use Status: Current-Occasional Tobacco Type: cigarettes Passive smoking exposure: Yes Quit Status: has quit before Second hand exposure: Yes Alcohol Alcohol Intake: current Alcohol intake frequency: holidays/special occasions only Alcohol type: beer Substance Use Substance use: Never Substance use type: does not use Prental History History 3 Para Hx # Term Pregnancies Multiple births 1 Hx # Pregnancies Ectopic pregnancies AB induced Hx Number of Living Children 4 AB spontaneous Vital Signs and Lab Results Vital Signs Most Recent Vital Signs in EMR: Most Recent Vital Signs Temp Pulse Resp BP Pulse Ox 36.7 C 83 15 176/91 H 98 03/17/21 11:06 03/17/21 11:06 03/17/21 11:06 03/17/21 11:06 03/17/21 11:06 Lab Results Result Diagrams: 03/17/21 14:05 03/17/21 14:05 Blood Type / Crossmatch: Patient ABO/Rh A Negative 03/17/21 14:05 03/17/21 Complete Blood Count: White Blood Count 11.70 10^3/uL (4.4-10.8) H 03/17/21 14:05 03/17/21 Red Blood Count 4.33 10^6/uL (3.93-5.22) 03/17/21 14:05 03/17/21 Hemoglobin 13.3 g/dL (11.2-15.7) 03/17/21 14:05 03/17/21 Hematocrit 41.0 % (36.0-46.0) 03/17/21 14:05 03/17/21 Platelet Count 294 10^3/uL (130-400) 03/17/21 14:05 03/17/21 Complete Metabolic Panel: Sodium Level 144 mmol/L (136-145) 03/17/21 14:03/17/21 Potassium Level 4.4 mmol/L (3.5-5.1) 03/17/21 14:03/17/21 Chloride Level 109 mmol/L (98-107) H 03/17/21 14:03/17/21 Carbon Dioxide Level 26.9 mmol/L (21.0-32.0) 03/17/21 14:05 03/17/21 Blood Urea Nitrogen 22 mg/dL (7-18) H 03/17/21 14:05 03/17/21 Creatinine 1.5 mg/dL (0.55-1.02) H 03/17/21 14:03/17/21 Calcium Level 9.7 mg/dL (8.5-10.1) 03/17/21 14:03/17/21 Albumin 4.1 g/dL (3.4-5.0) 03/17/21 14:05 03/17/21 Glucose Level 157 mg/dL (74-106) H 03/17/21 14:05 03/17/21 Liver Function Panel: Alanine Aminotransferase (ALT/SGPT) 24 U/L (14-59) 03/17/21 14:05 03/17/21 Aspartate Amino Transf (AST/SGOT) 16 U/L (15-37) 03/17/21 14:05 03/17/21 Coagulation Panel: No Data to Display Cardiac Panel: No Data to Display Arterial Blood Gas: No Data to Display Venous Blood Gas: No Data to Display Pancreas Panel: No Data to Display Thyroid Panel: No Data to Display Infectious Disease: Coronavirus (COVID-19)(PCR) Pending 03/17/21 14:00 03/17/21 Coronavirus 2019 Source Nasal/nares 03/17/21 14:00 03/17/21 Blood Cultures: No Data to Display Toxicology Panel: No Data to Display Anesthesia Assessment and Plan Anesthesia History Personal History: No History of General Anesthesia Family History: No Family History of Anesthesia Complications Exercise Tolerance Exercise Tolerance: Metabolic Equivalents>4 Pertinent Negatives Pertinent Negatives: No Symptoms of GERD Cardiac & Pulmonary Exam Cardiac Exam: Normal S1/S2 Heart Sounds Pulmonary Exam: Clear Bilateral Breath Sounds Airway Exam Known Difficult Airway: No Mallampati Class: 2 Mouth Opening: Normal (> 3cm) Thyromental Distance: Greater than 3 cm Neck Range of Motion: Full ROM Neck Circumference: Normal Teeth Condition: Normal Dentition ASA Classification ASA Score: ASA 2 Emergency Case?: Yes NPO Status NPO Status: NPO Clears >2 hours, Solids >8 hours (Esophageal foreign body) Anesthesia Plan Resuscitation Status: Full Code Anesthesia Technique: General Anesthesia Airway Planned: Endotracheal Tube Monitors Used: Standard Monitors
[2021-03-17 14:13] LABS: Abs Immature Grans 0.05 10^3/uL (0.0-0.06); Absolute Basophil Count 0.08 10^3/uL (0.0-0.2); Absolute Lymphocyte Count 1.51 10^3/uL (1.2-3.4); Basophils % 0.7; HGB 13.3 g/dL (11.2-15.7); Immature Grans % 0.4; Lymphocytes % 12.9; MCH 30.7 pg (27.0-33.0); MCHC 32.4 % (32.0-36.0); MCV 94.7 fL (80-95); MPV 10.1 fL (8.0-11.0); Monocytes % 5.1; Neutrophils % 80.9; Nucleated RBC 0 %; Platelet Count 294 10^3/uL (130-400); RBC 4.33 10^6/uL (3.93-5.22); RDW 14.9 % (11.7-14.6); RDW-SD 51.4 fL
[2021-03-17 14:14] LABS: Absolute Neutrophil Count 9.47 10^3/uL (1.2-6.7)
[2021-03-17 14:21] LABS: Source Nasal/Nares
[2021-03-17 14:31] LABS: ALT 24 U/L (14-59); AST 16 U/L (15-37); Albumin 4.1 g/dL (3.4-5.0); Alkaline Phosphatase 67 U/L (46-116); Anion Gap 8.1 mmol/L (3-11); BUN 22 mg/dL (7-18); Bilirubin, Total 0.3 mg/dL (0.2-1.0); CO2 26.9 mmol/L (21.0-32.0); CREATININE 1.5 mg/dL (0.55-1.02); Calcium 9.7 mg/dL (8.5-10.1); Chloride 109 mmol/L (98-107); Estimated GFR 34.53 (mL/min/1.73m2); Glucose 157 mg/dL (74-106); Potassium 4.4 mmol/L (3.5-5.1); Sodium 144 mmol/L (136-145); Total Protein 8.5 g/dL (6.4-8.2)
--- NOTE | 2021-03-17 15:10 | W.PM.HP.N ---
Date of service: 03/17/21 Time of Service: 15:10 Assessment and Plan Assessment and plan (1) Esophageal foreign body: Status: Acute Assessment and plan: 70yo female with persistent globus sensation and inability to swallow liquids after ingestion of ham yesterday evening. --NPO --COVID PCR --Plan to take for exploratory endoscopy, possible removal of food bolus. Risks of procedure including pain, bleeding, perforation, persistent globus sensation, and injury to surrounding structures (teeth, mouth, tongue, phyarnx, esophagus, stomach, heart, lungs, etc), and risks of anesthesia were reviewed with the patient. She demonstrated understanding and agreement. (2) Rheumatoid arthritis: Status: Chronic (3) Essential hypertension: Status: Chronic (4) Chronic kidney disease: Status: Chronic (5) Prediabetes: Status: Chronic (6) Hyperlipidemia: Status: Chronic (7) Generalized anxiety disorder: Status: Chronic (8) Major depressive disorder: Status: Chronic History of Present Illness History of Present Illness Chief Complaint: impacted food bolus Consults Consult date: 03/17/21 Requesting physician: Rosalba Mukherjee Narrative: This is a 70-year-old female who presents to the ED complaining of the feeling of an impacted food bolus. While eating ham last night for dinner, she took a drink of water, and felt the ham get lodged in her esophagus. Since then, she feels like she is not able to drink fluids, or swallow secretions. She denies burping, but feels like she is regurgitating everything she tries to swallow. She denies seeing any blood in this. She denies diffuse chest pain or pressure, and only feels discomfort in the same place in her superior chest, approximately the level of T4-5. She has never had similar pain or symptoms. She denies a personal history of cancer, with chemotherapy or chest radiation. She has never had an endoscopy or colonoscopy. Review of Systems Constitutional Constitutional: Reports difficulty sleeping and Denies headache(s) Eyes Eyes: Denies blurry vision and Denies change in vision ENT Ears, Nose, Mouth, and Throat: Reports dysphagia, Denies dizziness, Denies headache(s) and Reports odynophagia Cardiovascular Cardiovascular: Denies chest pain and Denies dyspnea Respiratory Respiratory: Reports cough, Denies hemoptysis and Denies dyspnea Gastrointestinal Gastrointestinal: Denies abdominal pain, Denies belching, Reports dysphagia, Reports odynophagia and Reports vomiting Genitourinary Genitourinary: Denies difficulty voiding Musculoskeletal Comments: Rheumatoid arthritis Neurologic Neurologic: Denies dizziness and Denies headache(s) [facility] Medical History Chronic kidney disease Followed by [facility] Nephrology Essential hypertension Generalized anxiety disorder Hyperlipidemia Major depressive disorder Osteopenia Prediabetes Rheumatoid arthritis Followed by [facility] senior government program analyst Dr. Venkat Woodard Surgical History S/P appendectomy (~1960) Family History Mother , at 77 of alzheimers Alzheimer's dementia Heart disease Myocardial infarction Breast cancer In her 40s Father , at 88 Heart disease Stroke Brother , at 21 from cancer Cancer Unknown type Brother , at 5 from brain tumor Brain tumor Sister , at 49 of breast cancer Breast cancer Sister , in her 50s of MD Heart disease Myocardial infarction Son No problems noted. Son No problems noted. Daughter Crohn's disease Colon cancer Daughter Crohn's disease Maternal Grandfather No problems noted. Maternal Grandmother No problems noted. Paternal Grandfather No problems noted. Paternal Grandmother No problems noted. Social History Smoking/Tobacco Use Status: Current-Occasional Tobacco Type: cigarettes Quit status: has quit before Second Hand Exposure: Yes Smoking risk assessment performed?: Yes Alcohol Intake: current Alcohol Intake frequency: holidays/special occasions only Alcohol type: beer Drug use: Never Substance use type: does not use Caregiver/Support person: No Household members: spouse Housing: house Communication Needs: None Do you need help understanding health information?: Never Pets and animals: Yes Pets and animals: dog(s) Sexually active: Yes Do you think of yourself as: straight/heterosexual Current gender identity: female What is your relationship status?: How often do you talk on the phone with friends or family?: three or more times per week How often do you get together with friends or relatives?: three or more times per week Do you belong to any clubs or organized social groups?: no Panel score (0-1 are the most socially isolated patients): 2 What type of physical activity do you participate in: walking Duration: 45-60 minutes/day Frequency: daily Sabiha/Yazdanism: [employer]aritan Seatbelt use: always Drive intox or ride w/intox package car driver: No Do you feel safe at home: Yes Do you feel safe in your relationship?: Yes History History 3 Para Hx # Term Pregnancies Multiple births 1 Hx # Pregnancies Ectopic pregnancies AB induced Hx Number of Living Children 4 AB spontaneous Meds Allergies and Home Medications Allergies Allergy/AdvReac Type Severity Reaction Status Date / Time levofloxacin Allergy Rash/itchin Unverified 03/17/21 11:08 g indomethacin AdvReac Intermediate GI Upset Unverified 03/17/21 11:08 Home Medications Medication Instructions Recorded Confirmed Type folic acid 1 mg PO DAILY tab-cap 02/11/13 03/17/21 History aspirin [Aspir-81] 81 mg PO DAILY tab-cap 03/26/14 03/17/21 History hydroxychloroquine 200 mg tablet 200 mg PO DAILY tab-cap 05/19/20 03/17/21 History methotrexate sodium 2.5 mg tablet 5 mg PO QWEEK tab 05/19/20 03/17/21 History losartan 50 mg tablet 75 mg PO DAILY #135 tab-cap 08/22/20 03/17/21 Rx rosuvastatin 10 mg tablet 10 mg PO DAILY #90 tab 11/28/20 03/17/21 Rx Exam Const General: cooperative, healthy appearing, comfortable and no acute distress Nutritional Appearance: average body habitus and well nourished Orientation: alert, awake and oriented x3 HENMT Head: normal to inspection General nose exam: external nose normal Neck Neck: normal visual inspection, trachea midline and supple Resp Effort & Inspection: normal respiratory effort Auscultation: clear to auscultation bilaterally Cardio Rate: regular rate Rhythm: regular rhythm Heart Sounds: S1 normal and S2 normal GI Palpation: soft, no guarding and nontender Skin General skin exam: dry skin Extrem General: normal to inspection Psych Appearance: grossly normal Speech and Movement: speech and movement normal Mood: congruent mood Affect: normal affect Attitude: cooperative Thought Process: normal Thought Content: normal Insight: insight good Judgment: judgment good Results Imaging Chest x-ray: report reviewed and image reviewed Imaging Studies: Soft tissue of neck (03/17/21): AP and lateral soft tissue views of the neck were obtained. The epiglottis has a slightly thickened contour. Possibility of epiglottitis is raised, please correlate clinically. No other significant soft tissue abnormality identified. No evidence of retro pharyngeal mass or thickening. Labs Result diagrams: 03/17/21 14:05 03/17/21 14:05 Labs: Laboratory Results - last 24 hr 03/17/21 03/17/21 03/17/21 14:00 14:05 14:05 WBC 11.70 H RBC 4.33 Hgb 13.3 Hct 41.0 MCV 94.7 MCH 30.7 MCHC 32.4 RDW 14.9 H Plt Count 294 MPV 10.1 Immature Gran % 0.4 Neutrophils % 80.9 Lymphocytes % 12.9 Monocytes % 5.1 Eosinophils % 0.0 Basophils % 0.7 Nucleated RBC % 0 Absolute Neutrophils 9.47 H Absolute Lymphocytes 1.51 Absolute Monocytes 0.60 Absolute Eosinophils 0.00 Absolute Basophils 0.08 Sodium 144 Potassium 4.4 Chloride 109 H Carbon Dioxide 26.9 Anion Gap 8.1 BUN 22 H Creatinine 1.5 H Estimated GFR/1.73 m2 34.53 Glucose 157 H Calcium 9.7 Total Bilirubin 0.3 AST 16 ALT 24 Alkaline Phosphatase 67 Total Protein 8.5 H Albumin 4.1 COVID-19 Source Nasal/nares Patient ABO/Rh Antibody Screen 03/17/21 14:05 WBC RBC Hgb Hct MCV MCH MCHC RDW Plt Count MPV Immature Gran % Neutrophils % Lymphocytes % Monocytes % Eosinophils % Basophils % Nucleated RBC % Absolute Neutrophils Absolute Lymphocytes Absolute Monocytes Absolute Eosinophils Absolute Basophils Sodium Potassium Chloride Carbon Dioxide Anion Gap BUN Creatinine Estimated GFR/1.73 m2 Glucose Calcium Total Bilirubin AST ALT Alkaline Phosphatase Total Protein Albumin COVID-19 Source Patient ABO/Rh A Negative Antibody Screen Negative Last Vital Signs Temp 98.1 F 03/17/21 14:10 Pulse 76 03/17/21 14:10 Resp 18 03/17/21 14:10 BP 156/71 H 03/17/21 14:10 Pulse Ox 96 03/17/21 14:10 COVID-19 Screening Have you, or household traveled for leisure in last 14 days?: No Had IN PERSON contact w/suspected or confirmed C-19 person: No
[2021-03-17 15:53] LABS: COVID-19 PCR Negative (Negative)
[2021-03-17] MEDS: Lactated Ringers 1,000 ML 30 ML IV (16:20)
--- NOTE | 2021-03-17 17:35 | W.PM.ENDDOP ---
Date of service: 03/17/21 Time of Service: 17:35 Endoscopy Report DATE OF PROCEDURE: 03/17/21 PRE-OP DIAGNOSIS: food bolus impaction POST-OP DIAGNOSIS: same PROCEDURE: Upper endoscopy, removal of food bolus SURGEON: Jonah Liang ANESTHESIA TYPE: General LMA/ETT ESTIMATED BLOOD LOSS: 0 PATHOLOGY: none sent COMPLICATIONS: None DISPOSITION: same day INDICATIONS: This is a 70-year-old female who presented to the [facility] ED with complaint of food impaction since last night. She states that she was eating a piece of ham last night around 7pm, when she took a drink of water. Throughout the evening, and earlier today, she made multiple attempts to drink water, and it would not pass. She noted that even trying to swallow saliva lead to regurgitation. In the ED, efforts were made to help clear the bolus with simethicone/sodium bicarb/citrate, and IV glucagon. She continuued to be uncomfortable, and could not drink water. FINDINGS: A small white pill was encounterd in the distal esophagus, as was a lodged chunk of partially masticated food. PROCEDURE DESCRIPTION: The patient was identified by name and birthdate, and was brought into the operating room on a stretcher. Monitors were applied. General anesthesia was induced, and the patient was intubated for airway protection. Another time out was called, and we proceded after we were all in agreement. A bite block was placed. The endoscope was introduced into the mouth, pass the pharynx and into the esophaus without difficulty. The upper and mid-esophagus were clear, except for st\cant benign polyps. The impacted meat was evident just proximal to the GE junction. There was also a white pill sitting just superior to this. Gentle attempts were made to push the bolus into the stomach but it would not budge. A Zaldivar net was used to remove the pill. A Ryder grasping device, and jumbo forceps were used to debulk the meat bolus, with serial bites, while avoiding mucosal injury. The endoscope was carefully passed in and out multiple times, to debulk the impacted meat. 1mg of IV glucagon was infused. After more manipulation, the bolus was able to be pushed into the stomach. The endoscope was advanced to the stomach, which appeared normal without significant pathology. Air and fluid was aspirated, and the endoscope was withdrawn. The bite block was removed. The patient was awaken and extubated, and transferred to the PACU in stable condition.
--- NOTE | 2021-03-17 17:44 | W.ANESPOSTOP ---
Postoperative Evaluation Date, Time and Location Date Performed: 03/17/21 Time Performed: 17:44 Patient Location: PACU Vital Signs Most Recent Imported Vital Signs: Most Recent Vital Signs Temp Pulse Resp BP Pulse Ox 36.5 C 75 26 H 101/41 L 95 03/17/21 17:41 03/17/21 17:41 03/17/21 17:41 03/17/21 17:41 03/17/21 17:41 Pain Score Most Recent Pain Score: Most Recent Pain Score Pain Level 0 03/17/21 11:06 Assessment Mental Status: Awake (Alert & Oriented to Patient Baseline) Airway and Respiratory Function: Patent airway with normal (patient baseline) respiratory exam Cardiovascular Function: Hemodynamically Stable Hydration Status: Adequately Hydrated Nausea & Vomiting: No Nausea or Vomiting Pain: Pt. Denies Any Pain Peripheral Nerve Block: Patient did not receive a nerve block
--- NOTE | 2021-03-17 18:02 | W.PM.DSUDISC ---
Discharge Plan Disposition Condition: Stable Discharge Details Attending Provider: Jonah Liang Primary Care Provider: Neema Larose Home Meds and New Rx's Prescriptions: No Action losartan 50 mg tablet 75 mg PO DAILY Qty: 135 RF: 4 rosuvastatin 10 mg tablet 10 mg PO DAILY Qty: 90 RF: 4 folic acid 1 MG tablet 1 mg PO DAILY RF: 0 aspirin [Aspir-81] 81 MG tablet,delayed release (DR/EC) 81 mg PO DAILY RF: 0 methotrexate sodium 2.5 mg tablet 5 mg PO QWEEK RF: 0 hydroxychloroquine 200 mg tablet 200 mg PO DAILY RF: 0 Discharge Instructions Activity:: Activity as Tolerated Activity:: Activity as Tolerated Diet:: soft diet for a few days. Chew food thoroughly. DS: Diagnosis Discharge Diagnosis (1) Esophageal foreign body: Status: Acute Asessment and Plan: s/p upper endoscopy, removal of food bolus Pt is tolerating clear liquids May discharge home when meets criteria (2) Rheumatoid arthritis: Status: Chronic (3) Essential hypertension: Status: Chronic (4) Chronic kidney disease: Status: Chronic (5) Prediabetes: Status: Chronic (6) Hyperlipidemia: Status: Chronic (7) Generalized anxiety disorder: Status: Chronic (8) Major depressive disorder: Status: Chronic
== END 2021-03-17 18:41 | disposition home or self-care (01) ==
LOC: ER 18:05 → SUR 18:06 → MS 18:07
PROVIDERS: Emergency Provider Physician Assistant; PCP Nurse Practitioner Family; Visit Provider Surgery
PROC: 0DC68ZZ Extirpation of Matter from Stomach, Via Natural or Artificial Opening Endoscopic (ICD-10-PCS; CPT 43247; principal; 2021-03-17 15:00)
DX: T18.128A Food in esophagus causing other injury, initial encounter (principal); R06.9 Unspecified abnormalities of breathing; R73.03 Prediabetes; I12.9 Hypertensive chronic kidney disease with stage 1 through stage 4 chronic kidney disease, or unspecified chronic kidney disease; E78.5 Hyperlipidemia, unspecified; N18.9 Chronic kidney disease, unspecified
CPT/HCPCS: 43215; 36415; 80053; 86850; 86900; 86901; 87635; 96374; 99285; 70360; 71046; 85025; J1100; J1610; J2001

== ENCOUNTER 2021-12-19 03:23 | Outpatient (CLI) | payer MEDICARE, SELFPAY ==
[2021-12-19 16:59] LABS: ALT 26 U/L (14-59); AST 17 U/L (15-37); Albumin 3.9 g/dL (3.4-5.0); Alkaline Phosphatase 66 U/L (46-116); Anion Gap 8.1 mmol/L (3-11); BUN 32 mg/dL (7-18); Bilirubin, Total 0.2 mg/dL (0.2-1.0); CO2 24.9 mmol/L (21.0-32.0); CREATININE 1.6 mg/dL (0.55-1.02); Calcium 9.3 mg/dL (8.5-10.1); Chloride 105 mmol/L (98-107); Estimated GFR 32.05 (mL/min/1.73m2); Glucose 86 mg/dL (74-106); Potassium 4.9 mmol/L (3.5-5.1); Sodium 138 mmol/L (136-145); Total Protein 7.6 g/dL (6.4-8.2)
[2021-12-19 17:02] LABS: Hemoglobin A1C 5.9 % (<5.7)
== END 2021-12-19 03:24 | disposition home or self-care (01) ==
LOC: LBO 03:23
PROVIDERS: PCP Nurse Practitioner Family; Visit Provider Nurse Practitioner Family
DX: R73.03 Prediabetes (principal); M06.9 Rheumatoid arthritis, unspecified; N18.9 Chronic kidney disease, unspecified
CPT/HCPCS: 36415; 80053; 83036

== ENCOUNTER 2022-02-20 03:08 | Outpatient (CLI) | payer MEDICARE, SELFPAY ==
--- NOTE | 2022-02-20 14:37 | W.NUTCONSULT ---
Date of service: 02/20/22 Time of Service: 14:37 Nutritional Consult ASSESSMENT: Dee Dee was referred to dietary management of CKD, pre DM. PMH: Rheumatoid arthritis, anxiety, depression. 5'3 158 lbs, down 7lbs in last month. Most recent A1C: 5.9% (12/19/21) indicating pre DM. Estimated Needs: 6468-3521 kcal, 55-60 g protein, 45-55 g fat, 150-200 g Carbohydrate, 1600 ml fluid Diet Recall: egg whites, mushrooms for breakfast, fruit for lunch, dinner - fish and vegetables. Average intake: 800 kcal, 35 g protein, 10 g fat, 55-70 g carbohydrate Dee Dee has been reading on [employer] about health and diet and has almost cut out all sodium, fat and most proteins out of her diet believing that she is protecting her kidneys. Currently, she is meeting about 50% of nutrient needs. She reports feeling extremely fatigued and craves bread and potato. She reports drinking 80 ounces daily of water and needs to use rest room every hour. Dee Dee typically does most of the cooking and rarely eats in restaurants or gets take out. Her anxiety has lead to disordered eating as a coping mechanism for stress and anxiety NUTRITIONAL DIAGNOSIS: Disordered eating leading to lack of intake of macronutrients/minerals and excessive intake of wateer Food, nutrition and nutrition related knowledge deficit Harmful beliefs about food or nutrition related topics INTERVENTION: Spoke with Dee Dee and her daughter in law importance of meeting nutrient requirements for health including adequate carbs, protein, fats, vitamins and minerals. Encouraged her to follow a meal plan that meets 1707-5759 kcal, with 0.8 g protein/kg (55-60 g protein) with up to 1500 ml sodium per day with up to 2000 ml free water. Educated her on how to read labels. Encouraged her to liberalize her diet to meet her macronutrient needs for healthy functioning body. Reviewed role of protein, carbohydratem, sodium, fluid intake in CKD and in glycemic management. Suspect weight loss has lead to better glycemic management. Goal Weight: 145-150 lbs MONITORING AND EVALUATION: no follow up planned at this time. Contact information provided. Will follow up prn Time Spent in Nutritional Counseling and Treatment: 30
== END 2022-02-20 03:09 | disposition home or self-care (01) ==
LOC: DS 03:08
PROVIDERS: PCP Nurse Practitioner Family; Visit Provider Dietitian, Registered

== ENCOUNTER 2022-03-01 01:02 | Outpatient (CLI) | payer MEDICARE, SELFPAY ==
--- NOTE | 2022-03-01 08:30 | DI.DEXA_ITS ---
Exam(s) XR DEXA BONE DENSITY W/WO RICARDO EXAM: XR DEXA BONE DENSITY W/WO IRCARDO CLINICAL HISTORY: Reassess osteopenia, last in 2014,screening for osteoporosis in post[place]op[place] TECHNIQUE: COMPARISON: CR,XR XR HUMERUS LT from 02/08/2021 FINDINGS: DEXA scan was performed according to the usual protocol. Please see the accompanying data sheets. Left hip scanning shows T-score -1.5 with left femoral neck T-score -2.4. Prior examination of Augus t 2014 showed left hip T-score -0.7. Left forearm scanning shows T-score 0.2, this is unchanged from 2015. Lumbar spine scanning shows T-score -1.0, prior examination of 2014 showed lumbar T-score -0.5. IMPRESSION: DEXA scan measurements are consistent with osteopenia according to the WHO criteria. Lateral vertebral scanogram shows no evidence of a vertebral compression fracture. RADIATION DOSE DELIVERED: Total DLP
== END 2022-03-01 01:22 ==
PROVIDERS: PCP Nurse Practitioner Family; Visit Provider Nurse Practitioner Family
DX: M85.88 Other specified disorders of bone density and structure, other site (principal); Z78.0 Asymptomatic menopausal state
CPT/HCPCS: 77080

== ENCOUNTER 2022-04-10 00:29 | Outpatient (CLI) | payer MEDICARE, SELFPAY ==
--- NOTE | 2022-04-10 | DI.US_ITS ---
Exam(s) US UPPER EXTREMITY VENOUS LT EXAM: US UPPER EXTREMITY VENOUS LT CLINICAL HISTORY: LEFT HAND SWELLING R22.32, RAISED BUMP ON LEFT HAND. TECHNIQUE: Ultrasound examination of the left upper extremity venous system(s) is performed using gr ayscale, color-flow, and spectral Doppler analysis. COMPARISON: No exams were available for comparison FINDINGS: The left internal jugular, axillary, subclavian, cephalic, basilic, brachial, radial, and ulnar veins are patent without evidence of thrombosis. A rounded circumscribed lesion of the dorsum of the hand corresponding to the palpable abnormality measuring 8 millimeters in length. This could represent a small post traumatic hematoma or focally dilated vein containing thrombus. IMPRESSION: Question of a focally dilated superficial vein containing thrombus of the dorsum of the hand versus h ematoma. The remaining vessels are patent. DATA REPOSITORY:
== END 2022-04-10 00:49 ==
LOC: DI 00:29
PROVIDERS: PCP Nurse Practitioner Family; Visit Provider Physician Assistant Medical
DX: R22.32 Localized swelling, mass and lump, left upper limb (principal)
CPT/HCPCS: 93971

== ENCOUNTER → 2022-04-12 02:43 | Outpatient (CLI) | payer MEDICARE, SELFPAY | PROVIDERS: PCP Nurse Practitioner Family; Visit Provider Nurse Practitioner Family ==

== ENCOUNTER 2022-05-08 01:24 | Outpatient (CLI) | payer MEDICARE, SELFPAY ==
[2022-05-08 12:54] LABS: Abs Immature Grans 0.06 10^3/uL (0.0-0.06); Absolute Basophil Count 0.07 10^3/uL (0.0-0.2); Absolute Lymphocyte Count 1.96 10^3/uL (1.2-3.4); Absolute Neutrophil Count 7.54 10^3/uL (1.2-6.7); Basophils % 0.7; HCT 30.3 % (36.0-46.0); Immature Grans % 0.6; MCH 30.1 pg (27.0-33.0); MCV 91 fL (80-95); MPV 10.4 fL (8.0-11.0); Monocytes % 6.8; Neutrophils % 72.9; Platelet Count 187 10^3/uL (130-400); RBC 3.32 10^6/uL (3.93-5.22); RDW 14.2 % (11.7-14.6); RDW-SD 47.8 fL; WBC 10.33 10^3/uL (4.4-10.8)
[2022-05-08 13:10] LABS: ALT 15 U/L (14-59); AST 20 U/L (15-37); Albumin 3.1 g/dL (3.4-5.0); Alkaline Phosphatase 63 U/L (46-116); Anion Gap 10.9 mmol/L (3-11); BUN 28 mg/dL (7-18); Bilirubin, Total 0.3 mg/dL (0.2-1.0); CO2 23.1 mmol/L (21.0-32.0); CREATININE 1.5 mg/dL (0.55-1.02); Calcium 8.9 mg/dL (8.5-10.1); Chloride 105 mmol/L (98-107); Estimated GFR 34.43 (mL/min/1.73m2); Glucose 101 mg/dL (74-106); Sodium 139 mmol/L (136-145); Total Protein 7.2 g/dL (6.4-8.2)
== END 2022-05-08 01:25 | disposition home or self-care (01) ==
LOC: LOS 01:24
PROVIDERS: PCP Nurse Practitioner Family; Visit Provider Internal Medicine
DX: M05.79 Rheumatoid arthritis with rheumatoid factor of multiple sites without organ or systems involvement (principal)
CPT/HCPCS: 36415; 80053; 85025

== ENCOUNTER 2022-06-05 13:51 | Outpatient (REF) | payer MEDICARE, SELFPAY ==
[2022-06-05 20:45] LABS: Abs Immature Grans 0.11 10^3/uL (0.0-0.06); Absolute Basophil Count 0.09 10^3/uL (0.0-0.2); Absolute Eosinophil Count 0.79 10^3/uL (0.0-0.7); Absolute Monocyte Count 0.75 10^3/uL (0.1-0.8); Basophils % 0.7; HCT 32.1 % (36.0-46.0); HGB 10.1 g/dL (11.2-15.7); Immature Grans % 0.8; Lymphocytes % 14.4; MCH 29.2 pg (27.0-33.0); MCHC 31.5 % (32.0-36.0); MCV 93 fL (80-95); MPV 11.7 fL (8.0-11.0); Monocytes % 5.7; Neutrophils % 72.4; RBC 3.46 10^6/uL (3.93-5.22); RDW 13.8 % (11.7-14.6); RDW-SD 47.1 fL; WBC 13.17 10^3/uL (4.4-10.8)
[2022-06-05 20:53] LABS: Absolute Neutrophil Count 9.54 10^3/uL (1.2-6.7)
[2022-06-05 21:03] LABS: Total Iron Binding Capacity 271 ug/dL (250-450)
[2022-06-05 21:08] LABS: Bilirubin Small (Negative); Blood Trace-intact (Negative); Clarity Sl Cloudy (Clear); Glucose Negative (Negative); Ketones Negative (Negative); Leukocyte Esterase Small (Negative); Nitrite Negative (Negative); Specific Gravity >= 1.030 (1.005-1.025); Urobilinogen 0.2 EU/dL (Up TO 0.2); pH 5.5 (5-8)
[2022-06-05 21:17] LABS: ALT 12 U/L (14-59); AST 15 U/L (15-37); Albumin 3.2 g/dL (3.4-5.0); Alkaline Phosphatase 73 U/L (46-116); Anion Gap 13.8 mmol/L (3-11); BUN 27 mg/dL (7-18); Bilirubin, Total 0.2 mg/dL (0.2-1.0); CO2 23.2 mmol/L (21.0-32.0); CREATININE 1.5 mg/dL (0.55-1.02); Calcium 8.9 mg/dL (8.5-10.1); Chloride 103 mmol/L (98-107); Estimated GFR 34.43 (mL/min/1.73m2); Ferritin 868 ng/mL (8-252); Glucose 107 mg/dL (74-106); Potassium 4.3 mmol/L (3.5-5.1); Sodium 140 mmol/L (136-145); Total Protein 7.8 g/dL (6.4-8.2)
[2022-06-05 21:40] LABS: Bacteria Many HPF (Negative); Casts Negative LPF (Negative); Crystals Negative HPF (Negative); Epithelial Cells Moderate HPF (Negative); Mucus Negative (Negative); RBC Negative HPF (0-2); WBC >50 HPF (0-5)
[2022-06-05 21:41] LABS: C & S Indicated? No/Sq. Contamination
[2022-06-05 22:02] LABS: RBC Morphology Normal
== END 2022-06-05 13:52 | disposition home or self-care (01) ==
LOC: LBN 13:51
PROVIDERS: PCP Nurse Practitioner Family; Visit Provider Nurse Practitioner Family
DX: R53.83 Other fatigue (principal); N18.9 Chronic kidney disease, unspecified; R39.89 Other symptoms and signs involving the genitourinary system
CPT/HCPCS: 80053; 81003; 81015; 82728; 83550; 85025

== ENCOUNTER 2022-06-28 15:59 | Outpatient (REF) | payer MEDICARE, SELFPAY ==
[2022-06-28 21:21] LABS: HCT 34.9 % (36.0-46.0); HGB 11.2 g/dL (11.2-15.7); MCH 28.4 pg (27.0-33.0); MCHC 32.1 % (32.0-36.0); MCV 89 fL (80-95); MPV 11.8 fL (8.0-11.0); Platelet Count 185 10^3/uL (130-400); RBC 3.94 10^6/uL (3.93-5.22); RDW-SD 45.4 fL; WBC 19.47 10^3/uL (4.4-10.8)
[2022-06-28 22:02] LABS: ALT 16 U/L (14-59); AST 16 U/L (15-37); Albumin 3.1 g/dL (3.4-5.0); Alkaline Phosphatase 81 U/L (46-116); BUN 28 mg/dL (7-18); Bilirubin, Total 0.3 mg/dL (0.2-1.0); CREATININE 1.5 mg/dL (0.55-1.02); Calcium 9.2 mg/dL (8.5-10.1); Chloride 100 mmol/L (98-107); Estimated GFR 37.49 (mL/min/1.73m2); Ferritin 1550 ng/mL (8-252); Glucose 129 mg/dL (74-106); Sodium 137 mmol/L (136-145); TSH (W/Ref FT4) 1.55 uIU/mL (0.36-3.74); Total Protein 7.9 g/dL (6.4-8.2)
== END 2022-06-28 16:00 | disposition home or self-care (01) ==
LOC: LBN 15:59
PROVIDERS: PCP Nurse Practitioner Family; Visit Provider Nurse Practitioner Family
DX: R63.4 Abnormal weight loss (principal); R79.89 Other specified abnormal findings of blood chemistry
CPT/HCPCS: 80053; 85027; 82728; 84443

== ENCOUNTER 2022-07-02 20:39 | Outpatient (REF) | payer MEDICARE, SELFPAY ==
[2022-07-02 22:32] LABS: Bilirubin Negative (Negative); Blood Negative (Negative); Clarity Turbid (Clear); Glucose Negative (Negative); Ketones Negative (Negative); Leukocyte Esterase Negative (Negative); Nitrite Negative (Negative); Specific Gravity >= 1.030 (1.005-1.025); Urobilinogen 0.2 EU/dL (Up TO 0.2); pH 5.5 (5-8)
[2022-07-02 22:46] LABS: C & S Indicated? No; Crystals Many Amorphous HPF (Negative)
== END 2022-07-02 20:40 | disposition home or self-care (01) ==
LOC: LBN 20:39
PROVIDERS: PCP Nurse Practitioner Family; Visit Provider Nurse Practitioner Family
DX: R82.998 Other abnormal findings in urine; D72.829 Elevated white blood cell count, unspecified
CPT/HCPCS: 81003; 81015

== ENCOUNTER 2022-07-03 18:16 | Inpatient (IN) | payer MEDICARE, SELFPAY ==
[2022-07-03] VITALS (13 sets, daily range): BP systolic 113–143; BP diastolic 47–74; PULSE 94–111; RESP 14–32; TEMP 36.6–37.4; O2SAT 90–97
--- NOTE | 2022-07-03 18:15 | RT.EKG_ITS ---
APPROVED REPORT Exam: Resting ECG Reason for Exam: vomiting Patient Location: E HR:86 bpm ECG Measurements Heart Rate 86 AXIS [place] 119 P 73 QRSd 137 QRS 137 QT 390 T -44 QTc 467 Conclusion Sinus rhythm...normal P axis, V-rate 60- 99 Right bundle branch block...QRSd>120, terminal axis(90,270). Sinus. RBBB. No STEMI. No significant change from previous EKG. I have reviewed and interpreted ECG and agree with software generated interpretation.
[2022-07-03 18:47] LABS: Source Nasal/Nares
--- NOTE | 2022-07-03 18:49 | NUR.NOTE ---
spoke with pts daughter privately and she told me that her doctor at [facility] has diagnosed her with anorexia and bipolar. pt gets very upset with daugther and did not admit to this with nursing staff. :
[2022-07-03 19:17] LABS: Absolute Basophil Count 0.06 10^3/uL (0.0-0.2); Basophils % 0.3; HCT 33.5 % (36.0-46.0); HGB 10.5 g/dL (11.2-15.7); Immature Grans % 0.9; Lymphocytes % 6.8; MCH 27.5 pg (27.0-33.0); MCHC 31.3 % (32.0-36.0); MCV 88 fL (80-95); MPV 10.4 fL (8.0-11.0); Monocytes % 4.8; Neutrophils % 87.2; Platelet Count 152 10^3/uL (130-400); RBC 3.82 10^6/uL (3.93-5.22); RDW 14.1 % (11.7-14.6); RDW-SD 44.7 fL
[2022-07-03 19:18] LABS: Absolute Lymphocyte Count 1.44 10^3/uL (1.2-3.4); Absolute Monocyte Count 1.02 10^3/uL (0.1-0.8); Absolute Neutrophil Count 18.49 10^3/uL (1.2-6.7)
[2022-07-03 19:32] LABS: COVID-19 PCR Negative (Negative)
--- NOTE | 2022-07-03 19:45 | DI.CT_ITS ---
Exam(s) CT CHEST PE ABD PELVIS W EXAM: CT CHEST PE ABD PELVIS W CLINICAL HISTORY: weight loss, nausea, r/o PE, mass. TECHNIQUE: Imaging Protocol: Axial CT angiography was performed with multi-slice acquisition and m ulti-planar and/or 3D reconstructions. CONTRAST MATERIAL: Intravenous: Omnipaque 350 Contrast volume:59 mL Oral: None COMPARISON: CT CT ABDOMEN PELVIS W from 11/02/2019 FINDINGS: CHEST: PULMONARY ARTERIES: There are extensive bilateral pulmonary emboli. This involves distal main pulmon tee arteries bilaterally. LUNGS: Multiple areas of both nodular and non nodular infiltrate noted. Peripheral pleural base infi ltrates are most probably developing pulmonary infarctions but there is also evidence of what appears to be bilateral metastatic nodules. Also some patchy infiltrates with may be infectious.. There ar e no pleural effusions. MEDIASTINUM: There is mild subcarinal adenopathy. Visualized thyroid unremarkable. CARDIAC: Heart size is normal. Small pericardial effusion noted maximum thickness 8 millimeters ante riorly. The diameter of the thoracic aorta is upper normal. No dissection.Ventricular ratio RV/LV s lightly greater than 1, indicating element of right heart strain, this despite absence of reflux of I V contrast into the intrahepatic IVC. OSSEOUS: No significant osseous lesions.. ABDOMEN: There is no ascites. LIVER: There are concerning a patent lesions now evident suspicious for metastatic disease. These ar e in the right hepatic lobe. The largest of these measures approximately 2 x 2 cm. Intrahepatic karen ts are not dilated. GALLBLADDER/BILIARY: No obvious gallbladder pathology. CBD is not dilated. PANCREAS: There is now concerning mass in the pancreatic tail which measures 2 x 1.9 cm, not previous ly present. Malignant appearance. Pancreatic duct is not dilated. Another smaller 7 x 6 millimeter hypodensity is seen the junction of the body and tail of the pancreas. SPLEEN: Spleen size is normal. The mass in the pancreas tail is contiguous with the splenic hilum. Proximal aspect of the splenic vein in this region is not seen and may be thrombosed. Portal vein c onfluence and main portal vein are patent as is the SMV. ADRENALS: Thickening of the adrenal glands noted but with minimal change from 2019. KIDNEYS:Benign cysts are again noted in both kidneys, largest again noted to be in the anterior tony x of the right kidney and measuring 1.4 x 1.3 cm. No solid renal masses evident. No calculi. No hydr onephrosis nor hydroureter.. ABDOMINAL AORTA: Abdominal aorta is calcified-atherosclerotic but without prominent aneurysm. The le ft common iliac artery is noted to be occluded at its origin. LYMPH NODES: There is no retroperitoneal or para-aortic adenopathy. There is a density on the left s sahara of the aorta which is probably a thrombosed left gonadal vein. ABDOMINAL WALL/GI: No evidence of significant anterior abdominal wall hernia. No bowel obstruction. PELVIS: LYMPH NODES: There is no intrapelvic nor inguinal adenopathy. GI: No evidence of appendicitis.Sigmoid diverticuli evident. No obvious acute diverticulitis. Diver ticula also noted in the descending-left colon. URINARY BLADDER: No calculi nor masses evident REPRODUCTIVE: Uterus size age-appropriate. Uterus is anteverted. No significant abnormal adnexal ma sses and no free fluid in the pelvis. OSSEOUS: There is a nonexpansile sclerotic bone density in the left ischial tuberosity of the lower p lana which is possibly a sclerotic metastatic lesion as it was not evident on the prior CT scan of 2019. No other focal osseous findings. No fractures. No fractures. Mild degenerative anterolisthesis L4 upon L5 mild disc space narrowing at this level. IMPRESSION: 1. Extensive bilateral central pulmonary emboli. Right heart strain noted. 2. Multi level bilateral patchy lung infiltrates as well as lung nodules. Consider pulmonary infarct ions, infection, and metastatic disease. There are no pleural effusions. 3. There is an ominous mass in the pancreatic tail as described above, contiguous with the splenic hi lum. This has malignant appearance and appears to be associated with thrombosis of the adjacent aspe ct of the splenic vein. The portal vein confluence and main portal vein are patent. 4. Multiple metastatic appearing lesions in the liver, predominately in the right hepatic lobe. Thes e are most probably related to the pancreatic finding. 5. Small sclerotic density in the left ischial tuberosity which may be a metastatic osseous lesion, g iven that it was not evident on the prior CT scan of 11/02/2019. No other bone lesions identified. Study 1st read by [facility]. RADIATION DOSE DELIVERED: 729.46mGy.cm Total DLP DATA REPOSITORY: All CT scans at this facility are submitted to the National Radiology Data Registry (NRDR) Dose Index Registry (DIR) with the [employer] (ACR). RADIATION OPTIMIZATION: All CT scans at this facility use at least one of these dose optimization te chniques: automated exposure control; mA and/or kV adjustment per patient size (includes targeted exa ms where dose is matched to clinical indication); or iterative reconstruction.
[2022-07-03 19:51] LABS: ALT 14 U/L (14-59); AST 17 U/L (15-37); Albumin 2.9 g/dL (3.4-5.0); Alkaline Phosphatase 84 U/L (46-116); Anion Gap 12.3 mmol/L (3-11); BUN 43 mg/dL (7-18); Bilirubin, Total 0.3 mg/dL (0.2-1.0); CO2 24.7 mmol/L (21.0-32.0); CREATININE 1.7 mg/dL (0.55-1.02); Calcium 9.5 mg/dL (8.5-10.1); Chloride 98 mmol/L (98-107); Estimated GFR 32.26 (mL/min/1.73m2); Glucose 138 mg/dL (74-106); Magnesium 2.1 mg/dL (1.8-2.4); Potassium 4.9 mmol/L (3.5-5.1); Sodium 135 mmol/L (136-145)
[2022-07-03 19:53] LABS: Troponin I 173 ng/L (<or=60)
--- NOTE | 2022-07-03 19:55 | W.ED.GENAD ---
Discharge Plan Disposition Patient Disposition: [facility] INPATIENT Condition: Stable Discharge Details Clinical Impression: Weight loss, Anorexia, Nausea, Multiple pulmonary emboli, Pancreatic mass Admit Date/Time: 07/03/22 21:58 Admit Provider: Xavi Morel Attending Provider: Xavi Morel Primary Care Provider: Neema Larose ED Provider: Avelino Velasco Discharge Data Discharge Date/Time-TO BE ENTERED AT DEPARTURE: 07/03/22 22:38 Medical Decision Making <Rosalba Mukherjee DO - Last Filed: 07/05/22 17:35> Dr. Mukherjee 71-year-old female with a history of bipolar disorder, anxiety, rheumatoid arthritis, chronic kidney disease, hypertension, hyperlipidemia and daily tobacco smoker who presents with decreased appetite and weight loss for the past 6 months with dry heaving and nausea over the past 2 months. Admits to 60 pound weight loss in the last 7 months and 8 pounds in the last 2 weeks. Heart rate 110s on arrival. She has dry mucous membranes. Her lungs are clear and her abdomen is soft nontender. She is afebrile and appears nontoxic. Considering her extensive smoking history, consider neoplasm. Will obtain screening labs, urinalysis, COVID and CT chest abdomen and pelvis. Daughter requested I speak with her outside of the room. She endorses that patient stopped all of her psychiatric medications 6 months ago because she thought she was overmedicated . Daughter states that patient still does take her daily lorazepam which I do not see on her medication list. Daughter states she feels that patient's lack of appetite is a choice and secondary to her psychiatric history. Daughter states that patient has been evaluated by her primary care doctor and diagnosed with an eating disorder that potentially is related to her bipolar disorder. Labs reviewed. White blood cell count 21, she has had leukocytosis in the past but this is more elevated. Creatinine 1.7 and GFR 32 which is close to her baseline. Troponin 173. Patient does not endorse any chest pain or shortness of breath. EKG notes a rate of 86, sinus, right bundle branch block, no STEMI and nondiagnostic and no significant change in previous EKG. May be demand ischemia in the setting of dehydration. Awaiting to go to CT. Case endorsed to Dr. Velasco to follow-up on labs and imaging and final disposition. Dr. Velasco pt stable, ct shows pancreatic mas with mets and numerous pe's. troponin mildly elevated. She is stable, hr 95 and bp 130/80, denies any chest pain or dyspnea. Discussed results with pt and daughter. Patient voices she is dnr/dni. Given the ct findings and elecated troponin will admit, lovenox ordered. Medical Records Medical records reviewed: Yes I reviewed the patient's medical records. Lab Data Lab results reviewed: Yes I reviewed the patient's lab results. Labs: Laboratory Tests Range/Units 07/03/22 07/03/22 07/03/22 18:45 19:07 19:07 WBC (4.4-10.8) 10^3/uL 21.20 H RBC (3.93-5.22) 10^6/uL 3.82 L Hgb (11.2-15.7) g/dL 10.5 L Hct (36.0-46.0) % 33.5 L MCV (80-95) fL 88 MCH (27.0-33.0) pg 27.5 MCHC (32.0-36.0) % 31.3 L RDW (11.7-14.6) % 14.1 Plt Count (130-400) 10^3/uL 152 MPV (8.0-11.0) fL 10.4 Immature Gran % 0.9 Neutrophils % 87.2 Lymphocytes % 6.8 Monocytes % 4.8 Eosinophils % 0.0 Basophils % 0.3 Nucleated RBC % (0.0-0.3) % 0.0 Absolute Neutrophils (1.2-6.7) 10^3/uL 18.49 H Absolute Lymphocytes (1.2-3.4) 10^3/uL 1.44 Absolute Monocytes (0.1-0.8) 10^3/uL 1.02 H Absolute Eosinophils (0.0-0.7) 10^3/uL 0.00 Absolute Basophils (0.0-0.2) 10^3/uL 0.06 Sodium (136-145) mmol/L 135 L Potassium (3.5-5.1) mmol/L 4.9 Chloride (98-107) mmol/L 98 Carbon Dioxide (21.0-32.0) mmol/L 24.7 Anion Gap (3-11) mmol/L 12.3 H BUN (7-18) mg/dL 43 H Creatinine (0.55-1.02) mg/dL 1.7 H Est GFR (CKD-EPI 2020) (mL/min/1.73m2) 32.26 Glucose (74-106) mg/dL 138 H Calcium (8.5-10.1) mg/dL 9.5 Magnesium (1.8-2.4) mg/dL 2.1 Total Bilirubin (0.2-1.0) mg/dL 0.3 AST (15-37) U/L 17 ALT (14-59) U/L 14 Alkaline Phosphatase (46-116) U/L 84 Troponin I (<or=60) ng/L 173 H* Total Protein (6.4-8.2) g/dL 8.0 Albumin (3.4-5.0) g/dL 2.9 L COVID-19 Source Nasal/Nares SARS-CoV-2 (PCR) (Negative) Negative Range/Units 07/03/22 07/03/22 21:10 21:15 WBC (4.4-10.8) 10^3/uL RBC (3.93-5.22) 10^6/uL Hgb (11.2-15.7) g/dL Hct (36.0-46.0) % MCV (80-95) fL MCH (27.0-33.0) pg MCHC (32.0-36.0) % RDW (11.7-14.6) % Plt Count (130-400) 10^3/uL MPV (8.0-11.0) fL Immature Gran % Neutrophils % Lymphocytes % Monocytes % Eosinophils % Basophils % Nucleated RBC % (0.0-0.3) % Absolute Neutrophils (1.2-6.7) 10^3/uL Absolute Lymphocytes (1.2-3.4) 10^3/uL Absolute Monocytes (0.1-0.8) 10^3/uL Absolute Eosinophils (0.0-0.7) 10^3/uL Absolute Basophils (0.0-0.2) 10^3/uL Sodium (136-145) mmol/L Potassium (3.5-5.1) mmol/L Chloride (98-107) mmol/L Carbon Dioxide (21.0-32.0) mmol/L Anion Gap (3-11) mmol/L BUN (7-18) mg/dL Creatinine (0.55-1.02) mg/dL Est GFR (CKD-EPI 2020) (mL/min/1.73m2) Glucose (74-106) mg/dL Calcium (8.5-10.1) mg/dL Magnesium (1.8-2.4) mg/dL Total Bilirubin (0.2-1.0) mg/dL AST (15-37) U/L ALT (14-59) U/L Alkaline Phosphatase (46-116) U/L Troponin I (<or=60) ng/L 173 H* Total Protein (6.4-8.2) g/dL Albumin (3.4-5.0) g/dL COVID-19 Source Cancelled SARS-CoV-2 (PCR) (Negative) Cancelled ECG Data Attestation: I personally reviewed and interpreted this ECG (s) as follows: Interpretation: Rate of 86, sinus, right bundle branch block, no STEMI. <Avelino Velasco MD - Last Filed: 07/03/22 21:41> 71-year-old female with a history of bipolar disorder, anxiety, rheumatoid arthritis, chronic kidney disease, hypertension, hyperlipidemia and daily tobacco smoker who presents with decreased appetite and weight loss for the past 6 months with dry heaving and nausea over the past 2 months. Admits to 60 pound weight loss in the last 7 months and 8 pounds in the last 2 weeks. Heart rate 110s on arrival. She has dry mucous membranes. Her lungs are clear and her abdomen is soft nontender. She is afebrile and appears nontoxic. Considering her extensive smoking history, consider neoplasm. Will obtain screening labs, urinalysis, COVID and CT chest abdomen and pelvis. Daughter requested I speak with her outside of the room. She endorses that patient stopped all of her psychiatric medications 6 months ago because she thought she was overmedicated . Daughter states that patient still does take her daily lorazepam which I do not see on her medication list. Daughter states she feels that patient's lack of appetite is a choice and secondary to her psychiatric history. Daughter states that patient has been evaluated by her primary care doctor and diagnosed with an eating disorder that potentially is related to her bipolar disorder. Labs reviewed. White blood cell count 21, she has had leukocytosis in the past but this is more elevated. Creatinine 1.7 and GFR 32 which is close to her baseline. Troponin 173. Patient does not endorse any chest pain or shortness of breath. EKG notes a rate of 86, sinus, right bundle branch block, no STEMI and nondiagnostic and no significant change in previous EKG. May be demand ischemia in the setting of dehydration. Awaiting to go to CT. Case endorsed to Dr. Velasco to follow-up on labs and imaging and final disposition. pt stable, ct shows pancreatic mas with mets and numerous pe's. troponin mildly elevated. She is stable, hr 95 and bp 130/80, denies any chest pain or dyspnea. Discussed results with pt and daughter. Patient voices she is dnr/dni. Given the ct findings and elecated troponin will admit, lovenox ordered. Imaging Data Radiologic Study: Attestation: I personally reviewed and interpreted this imaging study as follows: Imaging: CT Scan Radiologist's impression: IMPRESSION: 1. Large bilateral central pulmonary emboli. Right heart strain associated. 2. Patchy areas of airspace disease most prominent at the right lower lobe level. Consider areas of evolving infarction. 3. Multiple scattered pulmonary nodules most noted in the lower lobes. These were not present on previous assessment of the lung bases raising concern for diffuse metastatic disease. Impression: Pancreatic tail mass with gastrohepatic adenopathy and hepatic metastases of concern for primary pancreatic neoplasm. HPI <Rosalba Mukherjee DO - Last Filed: 07/05/22 17:35> General Mode of arrival: ambulatory. Date/Time Provider Initiated Documentation: 07/03/22 18:28. Limitations to Documentation: no limitations. Information obtained by: patient and family. HPI Narrative: Patient is a 71-year-old female with a history of bipolar disorder, anxiety, hypertension, hyperlipidemia, prediabetes and daily tobacco smoker who presents decreased appetite and dry heaving and weight loss over the past 2 months. Daughter at bedside states that patient has lost approximately 60 pounds due to decreased appetite since November 2021. Patient states her appetite and dry heaving worsened over the past 2 months. She states she lost approximately 8 pounds in the last 2 weeks. She states she is usually dry heaving but denies any vomiting. She states she has seen her primary care doctor for this and was referred for outpatient CT scan of her chest and abdomen which is scheduled for Saturday. Patient states she has not had a history of an upper endoscopy or colonoscopy. She denies any fever, chest pain, shortness of breath, abdominal pain, diarrhea or urinary symptoms. Related Data Home Medications Medication Instructions Recorded Confirmed losartan 50 mg tablet 75 mg PO DAILY #135 tab-caps 10/11/21 07/03/22 rosuvastatin 10 mg tablet 10 mg PO DAILY #90 tabs 12/14/21 07/03/22 amlodipine 5 mg tablet 5 mg PO DAILY 06/11/22 07/03/22 aripiprazole 2 mg tablet 2 mg PO QAM 06/28/22 07/03/22 escitalopram oxalate 10 mg tablet 10 mg PO DAILY 06/28/22 07/03/22 lamotrigine 25 mg tablet See Rx Instructions PO QHS 06/28/22 07/03/22 folic acid 1 mg tablet 1 mg PO DAILY 07/03/22 07/03/22 hydroxychloroquine 200 mg tablet 200 mg PO DAILY 07/03/22 07/03/22 amoxicillin 875 mg-potassium 1 tab PO BID #12 tabs 07/04/22 clavulanate 125 mg tablet apixaban 5 mg tablet (Eliquis) See Rx Instructions .Route 07/04/22 .COMPLEX #66 tabs dronabinol 2.5 mg capsule 2.5 mg PO BID@1130,1630 #30 caps 07/04/22 lorazepam 1 mg tablet (Ativan) 1 mg PO BID PRN 07/04/22 07/04/22 prednisone 20 mg tablet 40 mg PO DAILY #10 tabs 07/04/22 Previous Rx's Medication Instructions Recorded losartan 50 mg tablet 75 mg PO DAILY #135 tab-caps 10/11/21 rosuvastatin 10 mg tablet 10 mg PO DAILY #90 tabs 12/14/21 amoxicillin 875 mg-potassium 1 tab PO BID #12 tabs 07/04/22 clavulanate 125 mg tablet apixaban 5 mg tablet (Eliquis) See Rx Instructions .Route 07/04/22 .COMPLEX #66 tabs dronabinol 2.5 mg capsule 2.5 mg PO BID@1130,1630 #30 caps 07/04/22 prednisone 20 mg tablet 40 mg PO DAILY #10 tabs 07/04/22 Allergies Allergy/AdvReac Type Severity Reaction Status Date / Time levofloxacin Allergy Rash/itchin Verified 07/03/22 18:24 g indomethacin AdvReac Intermediate GI Upset Verified 07/03/22 18:24 General Stated Complaint: Nausea/Vomit/Diar MARY: 3 Review of Systems <Rosalba Mukherjee DO - Last Filed: 07/05/22 17:35> All systems reviewed & are unremarkable except as noted in HPI and below Constitutional Constitutional: Denies chills, Denies excessive sweating, Reports fatigue, Denies fever(s), Reports poor appetite, Reports weakness and Reports weight loss Eyes Eyes: Reports system reviewed and no additional complaints, except as documented and Denies blurry vision ENT Ears, Nose, Mouth, and Throat: Denies vertigo, Denies dizziness, Denies otalgia, Denies nasal congestion, Denies sore throat and Denies throat swelling Cardiovascular Cardiovascular: Denies chest pain, Denies syncope, Denies rapid heart rate and Denies dyspnea Respiratory Respiratory: Denies chest congestion, Denies cough, Denies pain on inspiration and Denies dyspnea Gastrointestinal Gastrointestinal: Denies abdominal pain, Denies diarrhea, Reports nausea and Denies vomiting Genitourinary Genitourinary: Denies hematuria, Denies dysuria and Denies flank pain Musculoskeletal Musculoskeletal: Denies back pain and Denies joint swelling Integumentary/Breasts Skin/Breast: Denies lesions and Denies rash Neurologic Neurologic: Denies behavioral changes, Denies confusion, Denies vertigo, Denies dizziness, Denies syncope, Denies localized weakness and Reports weakness Psychiatric Psychiatric: Denies behavioral changes, Denies confusion and Denies depression Endocrine Endocrine: Denies excessive sweating and Reports fatigue Hematologic/Lymphatic Hematologic/Lymphatic: Denies easy bruising and Denies lymphadenopathy Allergic/Immunologic Allergic/Immunologic: Denies throat swelling PFSH <Rosalba Mukherjee DO - Last Filed: 07/05/22 17:35> All Active Problems (Updated 07/05/22 @ 00:08 by WILFREDO DUEÑAS) Pneumonia (Acute) NSTEMI (non-ST elevated myocardial infarction) (Acute) Leukocytosis (leucocytosis) (Acute) Dehydration (Acute) Pancreatic mass (Acute) Metastatic cancer to lung (Acute) Pulmonary embolism, bilateral (Acute) Weight loss (Chronic) Anorexia (Chronic) Unintentional weight loss (Acute) Medical History Anemia of chronic disease Chronic kidney disease Followed by [facility] Nephrology Essential hypertension Generalized anxiety disorder Hyperlipidemia Major depressive disorder Prediabetes Rheumatoid arthritis Followed by [facility] vessel liner Dr. Venkat Woodard Surgical History S/P appendectomy (~1960) Family History Mother , at 77 of alzheimers Alzheimer's dementia Heart disease Myocardial infarction Breast cancer In her 40s Father , at 88 Heart disease Stroke Brother , at 21 from cancer Cancer Unknown type Brother , at 5 from brain tumor Brain tumor Sister , at 49 of breast cancer Breast cancer Sister , in her 50s of AL Heart disease Myocardial infarction Son No problems noted. Son No problems noted. Daughter Crohn's disease Colon cancer Daughter Crohn's disease Maternal Grandfather No problems noted. Maternal Grandmother No problems noted. Paternal Grandfather No problems noted. Paternal Grandmother No problems noted. Social History Smoking/Tobacco Use Status: Current every day Tobacco Type: cigarettes Second Hand Exposure: Yes Smoking risk assessment performed?: Yes Alcohol Intake: former Drug use: Never Substance use type: does not use Household members: spouse Pets and animals: Yes Pets and animals: cat(s) and dog(s) Do you think of yourself as: straight/heterosexual Current gender identity: female What is your relationship status?: How often do you talk on the phone with friends or family?: three or more times per week How often do you attend rastafari or gnosticism services?: 1-3 times per year Do you belong to any clubs or organized social groups?: no Panel score (0-1 are the most socially isolated patients): 2 Sabiha/Mormon: No preference Seatbelt use: always Drive intox or ride w/intox 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: No Do you feel safe at home: Yes Do you feel safe in your relationship?: Yes History History 3 Para Hx # Term Pregnancies Multiple births 1 Hx # Pregnancies Ectopic pregnancies AB induced Hx Number of Living Children 4 AB spontaneous Exam <Rosalba J Bugbee, - Last Filed: 07/05/22 17:35> Const General: cooperative Orientation: alert, awake and oriented x3 HENMT Head: normal to inspection Ears: hearing grossly normal bilaterally and external ears normal General nose exam: external nose normal Face and sinus: normal facial exam Mouth: mucous membranes dry Teeth and gingiva: dentition normal Throat: posterior oropharynx normal Eyes General: appearance normal, both eyes and all related structures Eyelids: eyelids normal Pupils: PERRL EOM: EOM intact bilaterally Neck Neck: normal visual inspection Lymphatic: no lymphadenopathy noted Chest Chest: normal inspection of the chest Resp Effort & Inspection: normal respiratory effort and able to speak in complete sentences Auscultation: clear to auscultation bilaterally Cardio Rate: tachycardic Rhythm: regular rhythm GI Inspection: normal to inspection Palpation: soft, not firm, no guarding, no hepatosplenomegaly, no masses and nontender Auscultation: hypoactive bowel sounds Skin General skin exam: no rashes or lesions noted Neuro General: patient alert and patient awake Cognition: normal cognition Speech: speech normal Gait: normal gait Motor: muscle tone normal throughout Sensory Exam: no sensory deficits noted Extrem General: normal to inspection, full ROM and capillary refill normal Psych Appearance: grossly normal Mental Status: mental status grossly normal Speech and Movement: speech and movement normal Affect: normal affect Thought Process: normal Course <Rosalba Mukherjee DO - Last Filed: 07/05/22 17:35> Vital Signs Vital signs: Vital Signs Temperature 97.9 F 07/03/22 18:19 Pulse 111 H 07/03/22 18:19 Respiratory Rate 16 07/03/22 18:19 Blood Pressure 121/47 L 07/03/22 18:19 Pulse Oximetry 97 07/03/22 18:19 Temperature 97.9 F 07/03/22 18:19 Pulse 111 H 07/03/22 18:19 Respiratory Rate 16 07/03/22 18:19 Respiratory Effort 07/03/22 18:26 Blood Pressure 121/47 L 07/03/22 18:19 Pulse Oximetry 97 07/03/22 18:19 Lab/Test Results Lab/Test Results: Laboratory Tests Range/Units 07/03/22 07/03/22 07/03/22 18:45 19:07 19:07 WBC (4.4-10.8) 10^3/uL 21.20 H RBC (3.93-5.22) 10^6/uL 3.82 L Hgb (11.2-15.7) g/dL 10.5 L Hct (36.0-46.0) % 33.5 L MCV (80-95) fL 88 MCH (27.0-33.0) pg 27.5 MCHC (32.0-36.0) % 31.3 L RDW (11.7-14.6) % 14.1 Plt Count (130-400) 10^3/uL 152 MPV (8.0-11.0) fL 10.4 Immature Gran % 0.9 Neutrophils % 87.2 Lymphocytes % 6.8 Monocytes % 4.8 Eosinophils % 0.0 Basophils % 0.3 Nucleated RBC % (0.0-0.3) % 0.0 Absolute Neutrophils (1.2-6.7) 10^3/uL 18.49 H Absolute Lymphocytes (1.2-3.4) 10^3/uL 1.44 Absolute Monocytes (0.1-0.8) 10^3/uL 1.02 H Absolute Eosinophils (0.0-0.7) 10^3/uL 0.00 Absolute Basophils (0.0-0.2) 10^3/uL 0.06 Sodium (136-145) mmol/L 135 L Potassium (3.5-5.1) mmol/L 4.9 Chloride (98-107) mmol/L 98 Carbon Dioxide (21.0-32.0) mmol/L 24.7 Anion Gap (3-11) mmol/L 12.3 H BUN (7-18) mg/dL 43 H Creatinine (0.55-1.02) mg/dL 1.7 H Est GFR (CKD-EPI 2020) (mL/min/1.73m2) 32.26 Glucose (74-106) mg/dL 138 H Calcium (8.5-10.1) mg/dL 9.5 Magnesium (1.8-2.4) mg/dL 2.1 Total Bilirubin (0.2-1.0) mg/dL 0.3 AST (15-37) U/L 17 ALT (14-59) U/L 14 Alkaline Phosphatase (46-116) U/L 84 Troponin I (<or=60) ng/L 173 H* Total Protein (6.4-8.2) g/dL 8.0 Albumin (3.4-5.0) g/dL 2.9 L COVID-19 Source Nasal/Nares SARS-CoV-2 (PCR) (Negative) Negative Sign Out <Rosalba Mukherjee DO - Last Filed: 07/05/22 17:35> Sign Out Data: Sign Out Comment: History of bipolar disorder and anxiety. Heavy tobacco smoker. Reported dry heaving, poor appetite and weight loss over the past 6 months, worse over the past 2 months. Daughter endorsed that patient stopped all of her psychiatric medications 6 months ago and she is concerned about a psychiatric component. Follow-up on labs and imaging and final disposition. Last updated by Rosalba Mukherjee DO at 07/03/22 20:35
[2022-07-03] MEDS: Normal Saline 1,000 ML 1000 ML IV (20:12)
[2022-07-03] MEDS: Ondansetron 4 MG/2 ML VIAL (20:40)
[2022-07-03] MEDS: Omnipaque 350 MG/ML 100 ML BTL IV (20:44)
[2022-07-03] MEDS: Normal Saline Flush 10 ML SYR IVP (20:48)
--- NOTE | 2022-07-03 21:25 | DI.VRAD_ITS ---
Addendum created by Rose Botello MD on 07/03/2022 9:30:51 PM EDT: Clarification: Please disregard the abdomen report above. The following is the correct abdomen report. There has been interval development of a right lobe hepatic lesion series 13, image 15 measuring 2 cm, presumed metastatic deposit. There is a 2nd focus in the medial segment of the left lobe, 2.1 cm image 30. There is some heterogeneity more inferiorly which could represent additional metastases. There appears to be a mass in the pancreatic tail region which was not appreciated from prior exam. It measures approximately 2.1 cm. There is some minimal soft tissue stranding in the peripancreatic tissues and some thickening of the tail tissue as well as the distal body. New lines there is gastrohepatic adenopathy with lymph nodes measuring up to 1.6 centimetres. There is some splenic heterogeneity involving the lateral anterior aspect. Metastasis not excludable. Severe atherosclerotic change present in the aorta. There is occlusion of the left common iliac artery with reconstitution of the external and internal iliac arteries, unchanged from previous study. Renal perfusion symmetric without hydronephrosis. Bilateral renal cysts. There is some heterogeneity involving the superior aspect of the left adrenal gland with mild enlargement. Mild left retroperitoneal and left external iliac adenopathy noted. Bladder findings are within normal limits. The uterus remains slightly enlarged, not significantly changed from previous study. Suspect old fibroid disease. There is diverticulosis without acute diverticulitis. No abnormal bowel distention or wall thickening appreciated. Impression: Pancreatic tail mass with gastrohepatic adenopathy and hepatic metastases of concern for primary pancreatic neoplasm. Initial report created on 07/03/2022 9:25:05 PM EDT: PROCEDURE INFORMATION: Exam: CTA Chest With Contrast CTA Abdomen With Contrast Exam date and time: 07/03/2022 8:32 PM Age: 71 years old Clinical indication: Other: Weight loss, nausea, R/O pe, mass TECHNIQUE: Imaging protocol: Computed tomographic angiography of the chest with contrast. Computed tomographic angiography of the abdomen with contrast. 3D rendering (Not supervised by radiologist): MIP and/or 3D reconstructed images were created by the technologist. Radiation optimization: All CT scans at this facility use at least one of these dose optimization techniques: automated exposure control; mA and/or kV adjustment per patient size (includes targeted exams where dose is matched to clinical indication); or iterative reconstruction. Contrast material: OMNIAQUE 350; Contrast volume: 56 ml; Contrast route: INTRAVENOUS (IV); COMPARISON: CT ABDOMEN PELVIS W 11/02/2019 11:18 AM FINDINGS: VASCULATURE: Pulmonary arteries: There are large bilateral central pulmonary emboli. There is marked decreased perfusion in the right lower lobe particularly. Aorta: No aortic aneurysm. No aortic dissection. Celiac trunk and mesenteric arteries: No occlusion or significant stenosis. Renal arteries: No occlusion or significant stenosis. CHEST: Lungs: There are scattered areas of airspace opacity the largest in the right lower lobe posteriorly. Early pulmonary infarction is a consideration. There are scattered bibasilar parenchymal nodules with minimal upper lobe involvement. Underlying COPD noted. Pleural spaces: Unremarkable. No pneumothorax. No pleural effusion. Heart: Unremarkable. No cardiomegaly. No pericardial effusion. Heart RV/LV ratio: The RV to LV ratio is 4.17/2.74, elevated at 1.5. ABDOMEN AND PELVIS: Liver: No mass. Gallbladder and bile ducts: Unremarkable. No calcified stones. No ductal dilation. Pancreas: Unremarkable. No mass. No ductal dilation. Spleen: Unremarkable. No splenomegaly. Adrenal glands: Unremarkable. No mass. Kidneys and ureters: Unremarkable. No solid mass. No hydronephrosis. Stomach and bowel: Unremarkable. No obstruction. No mucosal thickening. Intraperitoneal space: Unremarkable. No free air. No significant fluid collection. Lymph nodes: Unremarkable. No enlarged lymph nodes. Bones/joints: Unremarkable. No acute fracture. Soft tissues: Unremarkable. IMPRESSION: 1. Large bilateral central pulmonary emboli. Right heart strain associated. 2. Patchy areas of airspace disease most prominent at the right lower lobe level. Consider areas of evolving infarction. 3. Multiple scattered pulmonary nodules most noted in the lower lobes. These were not present on previous assessment of the lung bases raising concern for diffuse metastatic disease. I discussed case findings with Dr. Stein 07/03/2022 9:24 PM EDT. Dictated and Authenticated by: Rose Botello MD. Ordering:KIESHA Navarrete MD
[2022-07-03] MEDS: Enoxaparin 80 MG/0.8 ML SYR SC (21:42)
[2022-07-03 21:43] LABS: Troponin I 173 ng/L (<or=60)
[2022-07-03] MEDS: lamoTRIgine 25 MG TAB 50 MG PO (23:46)
[2022-07-03] MEDS: Acetaminophen 325 MG TAB PO (23:47)
[2022-07-03] MEDS: Normal Saline 1,000 ML 100 ML IV (23:47)
[2022-07-04 01:45] LABS: Troponin I 187 ng/L (<or=60)
[2022-07-04 03:01] VITALS: BP 116/61; PULSE 81; RESP 19; TEMP 36.2; O2SAT 100
[2022-07-04 06:16] LABS: Abs Immature Grans 0.19 10^3/uL (0.0-0.06); Absolute Lymphocyte Count 1.97 10^3/uL (1.2-3.4); Absolute Monocyte Count 1.05 10^3/uL (0.1-0.8); Absolute Neutrophil Count 15.16 10^3/uL (1.2-6.7); Basophils % 0.2; HCT 28.7 % (36.0-46.0); HGB 9.1 g/dL (11.2-15.7); Lymphocytes % 10.7; MCH 27.7 pg (27.0-33.0); MCHC 31.7 % (32.0-36.0); MCV 88 fL (80-95); MPV 11.2 fL (8.0-11.0); Monocytes % 5.7; Neutrophils % 82.4; Platelet Count 143 10^3/uL (130-400); RBC 3.28 10^6/uL (3.93-5.22); RDW 13.9 % (11.7-14.6); RDW-SD 44.9 fL
[2022-07-04 06:17] LABS: Absolute Basophil Count 0.04 10^3/uL (0.0-0.2)
[2022-07-04 06:26] LABS: INR 1.3 (0.9-1.1); Prothrombin Time 12.7 sec (9.3-11.0)
[2022-07-04 06:50] LABS: ALT 12 U/L (14-59); AST 15 U/L (15-37); Albumin 2.4 g/dL (3.4-5.0); Alkaline Phosphatase 75 U/L (46-116); Anion Gap 12.1 mmol/L (3-11); BUN 36 mg/dL (7-18); Bilirubin, Total 0.2 mg/dL (0.2-1.0); CO2 22.9 mmol/L (21.0-32.0); CREATININE 1.5 mg/dL (0.55-1.02); Calcium 8.8 mg/dL (8.5-10.1); Chloride 103 mmol/L (98-107); Estimated GFR 37.49 (mL/min/1.73m2); Glucose 100 mg/dL (74-106); Potassium 4.5 mmol/L (3.5-5.1); Sodium 138 mmol/L (136-145); Total Protein 6.8 g/dL (6.4-8.2)
[2022-07-04 06:51] LABS: Troponin I 185 ng/L (<or=60)
[2022-07-04 07:00] VITALS: PULSE 85
[2022-07-04 07:40] VITALS: BP 114/63; PULSE 82; RESP 16; TEMP 36.3; O2SAT 93
[2022-07-04] MEDS: Losartan 25 MG TAB 75 MG PO (08:22)
[2022-07-04] MEDS: Dronabinol 2.5 MG CAP PO ×3 (08:22→15:56)
[2022-07-04] MEDS: Hydroxychloroquine 200 MG TAB PO (08:22)
[2022-07-04] MEDS: ARIPiprazole 2 MG TAB PO (08:22)
[2022-07-04] MEDS: Escitalopram 10 MG TAB PO (08:23)
[2022-07-04] MEDS: Folic Acid 1 MG TAB PO (08:23)
[2022-07-04] MEDS: amLODIPine 5 MG TAB PO (08:23)
--- NOTE | 2022-07-04 09:01 | INITIAL_ITS ---
- If Service Date Differs Date of service: 07/04/22 Time of Service: 09:01 Care Management Initial Assess REASON FOR HOSPITALIZATION:: Weight loss, Anorexia, Nausea, Multiple pulmonary emboli, Pancreatic mass PAST MEDICAL HISTORY/PAST SURGICAL HISTORY:: All Active Problems (Updated 07/03/22 @ 21:41 by Xavi Morel). Metastatic cancer to lung (Acute). Pulmonary embolism, bilateral (Acute). Weight loss (Acute). Anorexia (Acute). Nausea (Acute). Unintentional weight loss (Acute). Medical History (Updated 07/03/22 @ 21:41 by Xavi Morel). Anemia of chronic disease. Chronic kidney disease. Followed by [facility] Nephrology. Essential hypertension. Generalized anxiety disorder. Hyperlipidemia. Major depressive disorder. Prediabetes. Rheumatoid arthritis. 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 Surgical History (Updated 07/03/22 @ 20:15 by Rosalba Mukherjee DO). S/P appendectomy (~1960) PREVIOUS FUNCTIONAL STATUS/SOCIAL/FAMILY SUPPORTS:: Dee Dee lives in [place] with her El. She has two adult daughters (twins) Poonam and Radha who are very supportive. She is active and independent at baseline, athough she hasn't left the house much since Covid started. CURRENT FUNCTIONAL STATUS:: Dee Dee is sitting up in her chair, visiting with her daughters Radha and Poonam when CM came to visit. Dee Dee prefers to discharge home with New [facility] services and outpatient follow up appointments. She will discharge with a New RX for Eliquis, CM provided patient with a free trial/discount card to use at the pharmacy (if applies). ADVANCE DIRECTIVES:: None, CM provided pt with forms. Has patient been provided with info about the portal/API?: Yes Did the patient sign up for the portal?: No CODE STATUS:: DNR/DNI INSURANCE COVERAGE / FINANCIAL ISSUES:: Medicare CURRENT HOME/COMMUNITY SERVICES/EQUIPMENT:: None PRIMARY CARE PHYSICIAN:: [facility] POTENTIAL DISCHARGE NEEDS:: Follow up appointments, discharge plan of care, Palliative PATIENT/FAMILY EDUCATION NEEDS:: Review discharge instructions, limitations, medications and plan to follow up with community providers. ask me three. TRANSPORTATION:: Via private vehicle with family. PLAN:: Dee Dee will discharge home with outpatient follow up appointments. New [facility] RN/PT/OT/ENVIRONMENTAL SCIENTIST services and Palliative consult will be ordered, New RX's will be trasmitted to [facility]. Family to transport. Dee Dee will follow up with discharge plan of care as prescribed.
[2022-07-04] MEDS: Normal Saline 1,000 ML 100 ML IV (09:22)
[2022-07-04] MEDS: Apixaban 5 MG TAB 10 MG PO (10:13)
[2022-07-04] MEDS: Amoxicillin 875/Clav. 125 TAB PO (10:13)
[2022-07-04 11:00] LABS: Procalcitonin 0.3 ng/mL
[2022-07-04 11:30] VITALS: BP 101/53; PULSE 82; RESP 16; TEMP 37.3; O2SAT 92
--- NOTE | 2022-07-04 14:05 | CMDISCH_ITS ---
- If Service Date Differs Date of service: 07/04/22 Time of Service: 14:05 LACE Index Scoring Tool - Questions: Length of Stay (in days): 1 Acuity (Admit via E.D.?): Yes Comorbidities: Liver or Renal Disease E.D. Visits: 1 - Answers: Total Score: 10 Risk of Readmission: High Risk Care Management Discharge Reason for Hospitalization: Weight loss, Anorexia, Nausea, Multiple pulmonary emboli, Pancreatic mass Discharge Plan: Dee Dee is discharged home with New [facility] RN/PT/OT/LABORER RAGS services. She will follow up with community providers and discharge plan of care as prescribed. Appointment with PCP Office is scheduled for tomorrow and outpatient Palliative care appointment is scheduled for 07/09/22. RX's are transmitted to [facility], except RX for Drabinol which is printed for patient. Patient/Family Education Needs: Review discharge instructions, limitations, medications and plan to follow up with community providers. Review ask me three. Services Needed at Discharge: Home Health Care Services ([facility] RN,PT,OT,LABORER RAGS. Also, Palliative Care Consult is ordered. CM notified Agencies.)
[2022-07-04 14:20] LABS: Bilirubin Negative (Negative); Blood Negative (Negative); Clarity Clear (Clear); Glucose Negative (Negative); Ketones Negative (Negative); Leukocyte Esterase Negative (Negative); Nitrite Negative (Negative); Specific Gravity >= 1.030 (1.005-1.025); Urobilinogen 0.2 EU/dL (Up TO 0.2)
[2022-07-04 14:26] LABS: Bacteria Negative HPF (Negative); C & S Indicated? No; Casts 0-2 Hyaline LPF (Negative); Crystals Negative HPF (Negative); Epithelial Cells Few HPF (Negative); Mucus Negative (Negative); RBC 0-2 HPF (0-2); WBC Negative HPF (0-5)
--- NOTE | 2022-07-04 15:34 | CHAPLAIN ---
Rev. Brynn Linder from [facility] called to let me know that Dee Dee's daughter in law (a coworker of Brynn's) asked if Brynn would visit Dee Dee. When I checked with Dee Dee, she was out of the room for a test, but her daughter, who also knows Brynn suggested that Brynn plan to visit this afternoon and I let Brynn know that.
--- NOTE | 2022-07-04 15:48 | W.PM.DS.N ---
Date of service: 07/04/22 Time of Service: 15:48 DS: Diagnosis Discharge Diagnosis (1) NSTEMI (non-ST elevated myocardial infarction): Status: Acute Asessment and Plan: Troponin elevations likely to demand ischemia d/t pulmonary emboli. Troponin levels: 173 > 173 > 187 > 185. No CP, SOA. (2) Pancreatic mass: Status: Acute Asessment and Plan: Referal to [facility] Oncology. (3) Pulmonary embolism, bilateral: Status: Acute Asessment and Plan: Eliquis 10mg BID for a total of 7 days, then 5mg BID. The pulmonary emboli are not likely acute given her current lack of symptomology and the presence of R ventricular enlargement on Echocardiogram. Echocardiogram results: LVEF of 57%. No segmental wall motion abnormalities of LV. Right ventricle is moderately dilated and the systolic function is moderately decreased with near akinesis of the mid inferior free wall but preserved apical and basal systolic funtion. Peak RVSP is 35 mmHg. No significant valve abnormalities. Small pericardial effusion. (4) Anorexia: Status: Chronic Asessment and Plan: Not acute. Secondary to pancreatic mass and metastatic process. Marinol initiated; 2.5mg BID before meals. (5) Unintentional weight loss: Status: Acute Asessment and Plan: As above. (6) Essential hypertension: Asessment and Plan: Borderline low normal BP while in hospital on a lower (25mg) dose of losartan compared to her home dose of 75mg. Hold losartan until PCP f/u or if home health nursing documents elevations of BP warranting restarting. (7) Major depressive disorder: (8) Rheumatoid arthritis: Asessment and Plan: She has been off her antidepressant medication. Encouraged to restart (9) Pneumonia: Status: Acute Asessment and Plan: Bilateral infiltrates on CT chest. Procalcitonin 0.3. Augmentin 875mg BID. Discharge Plan Disposition Patient Disposition: HOME W/HOME HEALTH SERVICE Condition: Stable Discharge Details Reason For Visit: Pulmonary Emboli, Metastatic Cancer Admit Date/Time: 07/03/22 21:58 Admit Provider: Xavi Morel Attending Provider: Xavi Morel Primary Care Provider: Neema Larose Hospital Course Hospital Course: This is a 71-year-old lady who has significant psychiatric issues in the past who has been having anorexia with weight loss for the last several months having also stopped her antidepressant medications about 6 months ago feeling that she may have been overmedicated.? She proceeded to have anorexia without any focalizing abdominal pain or heartburn and no problems swallowing by history.? She lost overall 60 pounds with 8 pounds within the last 2 weeks.? She has been having some nausea with dry heaving the last 2 months by report from the ED but patient did not report this during my interview.? She became tearful when talking about her anorexia and not being hungry and how her family has been responding to her issues blaming her psychiatric disease.? She was scheduled to have imaging of her chest and abdomen in the near future but was brought to the ED because of progressive symptoms.? In the ED she did have imaging which revealed bilateral pulmonary emboli which were basically asymptomatic without hypoxemia or significant tachycardia though she was tachycardic initially at 110 which responded to IV fluids.?She had no chest discomfort with inspiration.? Patient did have a finding in her troponins with no acute EKG changes with possibly secondary to her pulmonary emboli.? Troponin initially 173 and were trended. On imaging, she also was found to have a pancreatic tail mass which was suspicious for malignancy with metastatic lesions in the liver and lung and left ischium.? This would explain some of her symptoms with lack of pain because the location of the tumor in the tail of the pancreas.? She was admitted for IV hydration and treatment for her acute pulmonary emboli with Lovenox at 1.5 mg/kg daily initiated but subsequently placed on Eliquis.? She is a DNR/DNI. *See Diagnosis for details of hospital stay* She is planning to discuss her rheumatoid treatment. We will schedule an oncology appt with [facility]. F/U with PCP in 1-2 weeks. Home Meds and New Rx's Prescriptions: New amoxicillin-pot clavulanate 875-125 mg Tablet 1 tab PO BID Qty: 12 0RF Eliquis 5 mg Tablet See Rx Instructions .ROUTE .COMPLEX Qty: 66 0RF Rx Instructions: 2 pills daily starting 15 for 6 days, then 1 pill BID. prednisone 20 mg Tablet 40 mg PO DAILY Qty: 10 0RF dronabinol 2.5 mg Capsule 2.5 mg PO BID@1130,1630 Qty: 30 0RF Continued aripiprazole 2 mg tablet 2 mg PO QAM lamotrigine 25 mg tablet See Rx Instructions PO QHS Rx Instructions: 2 tabs QHS x 2 weeks then 3 tabs QHS orally every day at bedtime; rosuvastatin 10 mg tablet 10 mg PO DAILY Qty: 90 4RF amlodipine 5 mg tablet 5 mg PO DAILY Label Comments: TAKE ONE TABLET BY MOUTH EVERY DAY folic acid 1 mg tablet 1 mg PO DAILY Label Comments: TAKE ONE TABLET BY MOUTH EVERY DAY hydroxychloroquine 200 mg tablet 200 mg PO DAILY Label Comments: TAKE ONE TABLET BY MOUTH EVERY DAY lorazepam [Ativan] 1 mg Tablet 1 mg PO BID PRN Held losartan 50 mg tablet 75 mg PO DAILY Qty: 135 4RF Hold Instructions: Until PCP followup. Holding d/t low BP Rx Instructions: Take 1 and a half tablets daily No Action escitalopram oxalate 10 mg tablet 10 mg PO DAILY Discharge Instructions Instructions: Heart Attack (DC), Dehydration (DC), Heart Healthy Diet (DC), Pulmonary Embolism (DC) Stand Alone Forms: Nursing Discharge Form Referrals: Neema Larose NP [Primary Care Provider] - 07/05/22 11:00 am HEMATOLOGY/ONC,[facility] [OTHER] - (Initial visit for new dx of pancreatic tail mass with metastatic disease to liver, lung, bone. ) Activity:: Activity as Tolerated Equipment/Supplies:: No Equipment Needed Diet:: As Tolerated Discharge Orders Discharge Orders: Discharge Order (Routine); Ordered 07/04/22 Ordered By: Avinash Goldman DS: Summary Time Spent with Patient providing and/or coordinating discharge services: Greater than 30 minutes Status at Discharge Functional status at discharge: independent ambulation Overall status at discharge: patient is not back to baseline Mental Status: mental status grossly normal Speech and Movement: speech and movement normal Mood: dysthymic mood Affect: sad Exam Narrative Exam Narrative: General: Frail appearing. NAD HEENT: Normocephalic. Sclera clear. Mucous membranes dry. Neck: Supple without JVD. Back: Kyphotic. Lungs: Clear to auscultation and percussion with no focalizing rales or rhonchi. Heart: Regular rate and rhythm with no appreciable murmur or gallop. Abdomen:Soft, NT, ND Extremity: No pedal edema, no calf tenderness. Skin: Normal color, warm and dry. Psych: flattened affect. No abnormal thought processes. Remote and recent memory grossly intact. Psych Mental Status: mental status grossly normal Speech and Movement: speech and movement normal Mood: dysthymic mood Affect: sad DS: Data Vitals/I&O Vitals and I&O: Vital Signs Temperature 37.3 C 07/04/22 11:30 Temperature Source Tympanic 07/04/22 11:30 Pulse 82 07/04/22 11:30 Pulse Rhythm Regular 07/04/22 09:58 Pulse 96 H 07/03/22 22:16 Respiratory Rate 16 07/04/22 11:30 Respiratory Effort 07/04/22 09:58 Respiratory Depth Normal 07/04/22 09:58 Respiratory Pattern Normal 07/04/22 09:58 Blood Pressure 101/53 L 07/04/22 11:30 Blood Pressure Mean 72 07/03/22 22:16 Pulse Oximetry 92 07/04/22 11:30 Oxygen Delivery Method Room Air 07/04/22 11:30 Oxygen Flow Rate 0 07/04/22 11:30 Pain Level 0 07/04/22 11:30 Comment 07/04/22 11:30 Intake & Output 07/03/22 07/04/22 07/04/22 23:59 11:59 23:59 Intake Total 1000 / 1000 1058.333 / 1058.333 Output Total 250 / 250 Balance 1000 / 1000 808.333 / 808.333 Weight 57.153 kg 58.2 kg Intake: IV 1000 / 1000 958.333 / 958.333 Oral 100 / 100 Output: Urine 250 / 250 Other: Urine Color Yellow Urine Appearance Clear Clear Urine Odor None Comment missed hat Voiding Methods Toilet Data Completed and Pending Labs on day of discharge: Labs from last 24 hours 07/04/22 07/04/22 07/04/22 14:00 05:42 05:42 WBC RBC Hgb Hct MCV MCH MCHC RDW Plt Count MPV Immature Gran % Neutrophils % Lymphocytes % Monocytes % Eosinophils % Basophils % Nucleated RBC % Absolute Neutrophils Absolute Lymphocytes Absolute Monocytes Absolute Eosinophils Absolute Basophils PT 12.7 H INR 1.3 H Sodium Potassium Chloride Carbon Dioxide Anion Gap BUN Creatinine Est GFR (CKD-EPI 2020) Glucose Calcium Magnesium Total Bilirubin AST ALT Alkaline Phosphatase Troponin I Total Protein Albumin Procalcitonin 0.3 Urine Color Yellow Urine Clarity Clear Urine pH 6.0 Ur Specific [place] >= 1.030 H Urine Protein 30 H Urine Ketones Negative Urine Blood Negative Urine Nitrite Negative Urine Bilirubin Negative Urine Urobilinogen 0.2 Ur Leukocyte Esterase Negative Urine RBC 0-2 Urine WBC Negative Ur Epithelial Cells Few Urine Crystals Negative Urine Bacteria Negative Urine Casts 0-2 Hyaline Urine Mucus Negative Ur Culture Indicated? No Urine Glucose Negative COVID-19 Source SARS-CoV-2 (PCR) 07/04/22 07/04/22 07/04/22 05:42 05:42 05:42 WBC 18.40 H RBC 3.28 L Hgb 9.1 L Hct 28.7 L MCV 88 MCH 27.7 MCHC 31.7 L RDW 13.9 Plt Count 143 MPV 11.2 H Immature Gran % 1.0 Neutrophils % 82.4 Lymphocytes % 10.7 Monocytes % 5.7 Eosinophils % 0.0 Basophils % 0.2 Nucleated RBC % 0.0 Absolute Neutrophils 15.16 H Absolute Lymphocytes 1.97 Absolute Monocytes 1.05 H Absolute Eosinophils 0.00 Absolute Basophils 0.04 PT INR Sodium 138 Potassium 4.5 Chloride 103 Carbon Dioxide 22.9 Anion Gap 12.1 H BUN 36 H Creatinine 1.5 H Est GFR (CKD-EPI 2020) 37.49 Glucose 100 Calcium 8.8 Magnesium Total Bilirubin 0.2 AST 15 ALT 12 L Alkaline Phosphatase 75 Troponin I 185 H* Total Protein 6.8 Albumin 2.4 L Procalcitonin Urine Color Urine Clarity Urine pH Ur Specific [place] Urine Protein Urine Ketones Urine Blood Urine Nitrite Urine Bilirubin Urine Urobilinogen Ur Leukocyte Esterase Urine RBC Urine WBC Ur Epithelial Cells Urine Crystals Urine Bacteria Urine Casts Urine Mucus Ur Culture Indicated? Urine Glucose COVID-19 Source SARS-CoV-2 (PCR) 07/04/22 07/03/22 07/03/22 01:15 23:35 21:15 WBC RBC Hgb Hct MCV MCH MCHC RDW Plt Count MPV Immature Gran % Neutrophils % Lymphocytes % Monocytes % Eosinophils % Basophils % Nucleated RBC % Absolute Neutrophils Absolute Lymphocytes Absolute Monocytes Absolute Eosinophils Absolute Basophils PT INR Sodium Potassium Chloride Carbon Dioxide Anion Gap BUN Creatinine Est GFR (CKD-EPI 2020) Glucose Calcium Magnesium Total Bilirubin AST ALT Alkaline Phosphatase Troponin I 187 H* Cancelled 173 H* Total Protein Albumin Procalcitonin Urine Color Urine Clarity Urine pH Ur Specific [place] Urine Protein Urine Ketones Urine Blood Urine Nitrite Urine Bilirubin Urine Urobilinogen Ur Leukocyte Esterase Urine RBC Urine WBC Ur Epithelial Cells Urine Crystals Urine Bacteria Urine Casts Urine Mucus Ur Culture Indicated? Urine Glucose COVID-19 Source SARS-CoV-2 (PCR) 07/03/22 07/03/22 07/03/22 21:10 19:07 19:07 WBC 21.20 H RBC 3.82 L Hgb 10.5 L Hct 33.5 L MCV 88 MCH 27.5 MCHC 31.3 L RDW 14.1 Plt Count 152 MPV 10.4 Immature Gran % 0.9 Neutrophils % 87.2 Lymphocytes % 6.8 Monocytes % 4.8 Eosinophils % 0.0 Basophils % 0.3 Nucleated RBC % 0.0 Absolute Neutrophils 18.49 H Absolute Lymphocytes 1.44 Absolute Monocytes 1.02 H Absolute Eosinophils 0.00 Absolute Basophils 0.06 PT INR Sodium 135 L Potassium 4.9 Chloride 98 Carbon Dioxide 24.7 Anion Gap 12.3 H BUN 43 H Creatinine 1.7 H Est GFR (CKD-EPI 2020) 32.26 Glucose 138 H Calcium 9.5 Magnesium 2.1 Total Bilirubin 0.3 AST 17 ALT 14 Alkaline Phosphatase 84 Troponin I 173 H* Total Protein 8.0 Albumin 2.9 L Procalcitonin Urine Color Urine Clarity Urine pH Ur Specific [place] Urine Protein Urine Ketones Urine Blood Urine Nitrite Urine Bilirubin Urine Urobilinogen Ur Leukocyte Esterase Urine RBC Urine WBC Ur Epithelial Cells Urine Crystals Urine Bacteria Urine Casts Urine Mucus Ur Culture Indicated? Urine Glucose COVID-19 Source Cancelled SARS-CoV-2 (PCR) Cancelled 07/03/22 18:45 WBC RBC Hgb Hct MCV MCH MCHC RDW Plt Count MPV Immature Gran % Neutrophils % Lymphocytes % Monocytes % Eosinophils % Basophils % Nucleated RBC % Absolute Neutrophils Absolute Lymphocytes Absolute Monocytes Absolute Eosinophils Absolute Basophils PT INR Sodium Potassium Chloride Carbon Dioxide Anion Gap BUN Creatinine Est GFR (CKD-EPI 2020) Glucose Calcium Magnesium Total Bilirubin AST ALT Alkaline Phosphatase Troponin I Total Protein Albumin Procalcitonin Urine Color Urine Clarity Urine pH Ur Specific [place] Urine Protein Urine Ketones Urine Blood Urine Nitrite Urine Bilirubin Urine Urobilinogen Ur Leukocyte Esterase Urine RBC Urine WBC Ur Epithelial Cells Urine Crystals Urine Bacteria Urine Casts Urine Mucus Ur Culture Indicated? Urine Glucose COVID-19 Source Nasal/Nares SARS-CoV-2 (PCR) Negative PFSH All Active Problems (Updated 07/04/22 @ 16:10 by Avinash Goldman MD) Pneumonia (Acute) NSTEMI (non-ST elevated myocardial infarction) (Acute) Leukocytosis (leucocytosis) (Acute) Dehydration (Acute) Pancreatic mass (Acute) Metastatic cancer to lung (Acute) Pulmonary embolism, bilateral (Acute) Weight loss (Chronic) Anorexia (Chronic) Nausea (Acute) Unintentional weight loss (Acute) Medical History Anemia of chronic disease Chronic kidney disease Followed by [facility] Ne[facility]rology Essential hypertension Generalized anxiety disorder Hyperlipidemia Major depressive disorder Prediabetes Rheumatoid arthritis 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 Venkat Woodard Surgical History S/P appendectomy (~1960) Family History Mother , at 77 of alzheimers Alzheimer's dementia Heart disease Myocardial infarction Breast cancer In her 40s Father , at 88 Heart disease Stroke Brother , at 21 from cancer Cancer Unknown type Brother , at 5 from brain tumor Brain tumor Sister , at 49 of breast cancer Breast cancer Sister , in her 50s of [place] Heart disease Myocardial infarction Son No problems noted. Son No problems noted. Daughter Crohn's disease Colon cancer Daughter Crohn's disease Maternal Grandfather No problems noted. Maternal Grandmother No problems noted. Paternal Grandfather No problems noted. Paternal Grandmother No problems noted. Social History Smoking/Tobacco Use Status: Current every day Tobacco Type: cigarettes Second Hand Exposure: Yes Smoking risk assessment performed?: Yes Alcohol Intake: former Drug use: Never Substance use type: does not use Household members: spouse Pets and animals: Yes Pets and animals: cat(s) and dog(s) Do you think of yourself as: straight/heterosexual Current gender identity: female What is your relationship status?: How often do you talk on the phone with friends or family?: three or more times per week How often do you attend scientologist or christianity services?: 1-3 times per year Do you belong to any clubs or organized social groups?: no Panel score (0-1 are the most socially isolated patients): 2 Sabiha/Congregation: No preference Seatbelt use: always Drive intox or ride w/intox route delivery driver: No Do you feel safe at home: Yes Do you feel safe in your relationship?: Yes History History 3 Para Hx # Term Pregnancies Multiple births 1 Hx # Pregnancies Ectopic pregnancies AB induced Hx Number of Living Children 4 AB spontaneous
[2022-07-04 15:55] VITALS: BP 112/65; PULSE 85; RESP 16; TEMP 36.6; O2SAT 94
[2022-07-04] MEDS: methylPREDNISolone SUCC 40 MG VIAL IVP (15:56)
--- NOTE | 2022-07-04 16:21 | PDOC.HHF2F ---
Home Health Certification Home Health Certification: 1. Encounter Date and Reason I certify that Dee Dee Villatoro was seen by Avinash Goldman MD on 07/04/22 and that I had a [id number]-[id number] encounter with this patient that meets the physician face to face encounter requirements. 2. Clinical Findings Supporting Skilled Need and Homebound Status I certify that home health services are medically necessary, include either intermittent senior living and/or physical/speech therapy, and that this patient is homebound in that absences from the home require considerable and taxing effort and are infrequent or of short duration, or are attributable to the need to receive medical care. [X] (a) Attached documentation from encounter provides clinical findings supporting skilled need and homebound status (including what assistance patient requires to leave the home). The encounter with the patient was in whole, or in part, for the following medical condition, which is the primary reason for home health care: Pulmonary Emboli, Metastatic Cancer Intermediate:Monitor patient's medical condition, instruct on medication regimen and signs and symptoms to report. Pt is at risk of decompensation and/or adverse events due to recent hospitalization. Physical Therapy:Increase strength and endurance for safe ambulation following the patient's hospital stay in background of new significant diagnoses. OT: Evaluate and treat her ability to perform ADLs and IADLs. ASE MASTER MECHANIC: assist in community resources. Speech Therapy: Homebound:Unable to leave home unassisted d/t ambulation being severely limited because of decreased strength and endurance. 3. Certification and Authentication I certify that I composed the above information based on my clinical judgement relating to this patient's medical condition and, if applicable, clinical findings communicated to me by the NPP or inpatient physician who performed the Home Health Referral. All further orders will be obtained through Neema Farru (Community Based Physician - PCP)
== END 2022-07-04 16:41 | disposition home health service (06) | DRG 280 ==
LOC: ER 22:04 → MS 22:41
PROVIDERS: Family Medicine; Physician Assistant; Admitting Provider Family Medicine; Emergency Provider Emergency Medicine; PCP Nurse Practitioner Family; Visit Provider Family Medicine
DX: I21.A1 Myocardial infarction type 2 (principal); I26.99 Other pulmonary embolism without acute cor pulmonale; J18.9 Pneumonia, unspecified organism; C25.2 Malignant neoplasm of tail of pancreas; C78.7 Secondary malignant neoplasm of liver and intrahepatic bile duct; C78.02 Secondary malignant neoplasm of left lung; C78.01 Secondary malignant neoplasm of right lung; C79.51 Secondary malignant neoplasm of bone; R63.0 Anorexia; Z68.22 Body mass index [BMI] 22.0-22.9, adult; I10 Essential (primary) hypertension; F32.9 Major depressive disorder, single episode, unspecified; M06.9 Rheumatoid arthritis, unspecified; Z66 Do not resuscitate
CPT/HCPCS: 36415; 71275; 74177; 80053; 84145; 87635; 93005; 96361; 96372; 96375; 99285; 81003; 81015; 83735; 84484; 85025; 85610; 93010; 93306; 99239; J1650; J2405; J3490

== ENCOUNTER → 2022-07-09 02:50 | Outpatient (CLI) | payer MEDICARE, SELFPAY ==
--- NOTE | 2022-07-03 21:40 | W.PM.HP.N ---
Date of service: 07/03/22 Time of Service: 21:40 Assessment and Plan Assessment and plan (1) Weight loss: Status: Acute (2) Pulmonary embolism, bilateral: Status: Acute (3) Metastatic cancer to lung: Status: Acute PFSH All Active Problems Metastatic cancer to lung (Acute) Pulmonary embolism, bilateral (Acute) Weight loss (Acute) Anorexia (Acute) Nausea (Acute) Unintentional weight loss (Acute) Medical History Anemia of chronic disease Chronic kidney disease Followed by [facility] Nephrology Essential hypertension Generalized anxiety disorder Hyperlipidemia Major depressive disorder Prediabetes Rheumatoid arthritis [place] [facility]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 Venkat Woodard Surgical History S/P appendectomy (~1960) Family History Mother , at 77 of alzheimers Alzheimer's dementia Heart disease Myocardial infarction Breast cancer In her 40s Father , at 88 Heart disease Stroke Brother , at 21 from cancer Cancer Unknown type Brother , at 5 from brain tumor Brain tumor Sister , at 49 of breast cancer Breast cancer Sister , in her 50s of [place] Heart disease Myocardial infarction Son No problems noted. Son No problems noted. Daughter Crohn's disease Colon cancer Daughter Crohn's disease Maternal Grandfather No problems noted. Maternal Grandmother No problems noted. Paternal Grandfather No problems noted. Paternal Grandmother No problems noted. Social History Smoking/Tobacco Use Status: Current every day Tobacco Type: cigarettes Second Hand Exposure: Yes Smoking risk assessment performed?: Yes Alcohol Intake: former Drug use: Never Substance use type: does not use Household members: spouse Pets and animals: Yes Pets and animals: cat(s) and dog(s) Do you think of yourself as: straight/heterosexual Current gender identity: female What is your relationship status?: How often do you talk on the phone with friends or family?: three or more times per week How often do you attend tenriism or muslim services?: 1-3 times per year Do you belong to any clubs or organized social groups?: no Panel score (0-1 are the most socially isolated patients): 2 Sabiha/Protestant: No preference Seatbelt use: always Drive intox 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 Do you feel safe at home: Yes Do you feel safe in your relationship?: Yes History History 3 Para Hx # Term Pregnancies Multiple births 1 Hx # Pregnancies Ectopic pregnancies AB induced Hx Number of Living Children 4 AB spontaneous Meds Allergies and Home Medications Allergies Allergy/AdvReac Type Severity Reaction Status Date / Time levofloxacin Allergy Rash/itchin Verified 07/03/22 18:24 g indomethacin AdvReac Intermediate GI Upset Verified 07/03/22 18:24 Home Medications Medication Instructions Recorded Confirmed Type losartan 50 mg tablet 75 mg PO DAILY #135 tab-caps 10/11/21 07/03/22 Rx rosuvastatin 10 mg tablet 10 mg PO DAILY #90 tabs 12/14/21 07/03/22 Rx amlodipine 5 mg tablet 5 mg PO DAILY 06/11/22 07/03/22 History aripiprazole 2 mg tablet 2 mg PO QAM 06/28/22 07/03/22 History escitalopram oxalate 10 mg tablet 10 mg PO DAILY 06/28/22 07/03/22 History lamotrigine 25 mg tablet See Rx Instructions PO QHS 06/28/22 07/03/22 History folic acid 1 mg tablet 1 mg PO DAILY 07/03/22 07/03/22 History hydroxychloroquine 200 mg tablet 200 mg PO DAILY 07/03/22 07/03/22 History
--- NOTE | 2022-07-04 13:13 | W.PM.HP.N ---
Date of service: 07/03/22 Time of Service: 21:40 Assessment and Plan Assessment and plan (1) Pulmonary embolism, bilateral: Start date: 07/03/22 Status: Acute Assessment and plan: This is a 71-year-old lady with previous psychiatric issues and significant weight loss with anorexia and no focalizing pains other than recently nausea with vomiting and dry heaving and 8 pound weight loss on top of an overall 60 pound weight loss over the last several months. Imaging does reveal pancreatic tail mass which is not causing symptoms other than weight loss with extensive imaging changes suggesting metastatic disease to the liver and lung. She also was found to have acute pulmonary emboli with tachycardia as the only symptom but this may be associate with dehydration more than her PE. She had no significant hypoxemia. She will be treated for her acute pulmonary emboli but long-term needs further evaluation and discussion of possible treatment options for her apparent pancreatic mass with metastatic disease. She is a DNR/DNI. (2) NSTEMI (non-ST elevated myocardial infarction): Start date: 07/03/22 Status: Acute Assessment and plan: Most likely type II secondary to stress of acute process with pulmonary emboli and metastatic disease. This may also be the estimation of her leukocytosis. No specific therapy other than cardiac monitoring and trending troponins. Consider further cardiology work-up if needed. Patient is a DNR/DNI. (3) Metastatic cancer to lung: Start date: 07/03/22 Status: Acute Assessment and plan: Apparent metastatic lesion in the lung and liver which may be from the pancreatic tail mass on imaging but tissues not been obtained and this is all by imaging and needs verification. The patient has been told about the probable diagnosis and that tissue needs to be used for confirmation prior to discussion of treatment options. She is a DNR/DNI. This most likely is the cause of her recent weight loss and anorexia. (4) Pancreatic mass: Start date: 07/03/22 Status: Acute Assessment and plan: This is a new finding as discussed above and further evaluation and tissue diagnosis needs to be accomplished once patient is stabilized. (5) Leukocytosis (leucocytosis): Start date: 07/03/22 Status: Acute Assessment and plan: This may be secondary to stress with patient having no evidence of acute infection. Follow-up cultures as appropriate and trend lab. (6) Dehydration: Start date: 07/03/22 Status: Acute Assessment and plan: IV hydration monitoring labs closely and watch for fluid overload. Patient does appear to have chronic kidney disease stage IIIa but this needs to be followed and further evaluated as an outpatient. This is not problematic and secondary to her anorexia and poor intake. (7) Anorexia: Status: Chronic Assessment and plan: Persistent over months with about 60 pound weight loss in the patient with underlying malignancy most likely but also her psychiatric disease may have contributed to her anorexia. Discussed reinitiating her antidepressants and proceed with work-up of her newfound malignancy and possible metastases. (8) Weight loss: Status: Chronic Assessment and plan: As discussed above with weight loss now explained by new findings with malignancy work-up to be ongoing and patient to decide on treatment options once tissue diagnosis and further evaluation. She is a DNR/DNI. (9) Chronic kidney disease: Assessment and plan: Slightly exacerbated with patient to be hydrated gently watching for fluid overload. Follow-up chronically as outpatient with PCP. Qualifiers: Chronic kidney disease stage 3 subtype: stage 3a (GFR 45-59) History of Present Illness History of Present Illness Chief Complaint: Anorexia with weight loss for 6 months Narrative: This is a 71-year-old lady who has significant psychiatric issues in the past who has been having anorexia with weight loss for the last several months having also stopped her antidepressant medications about 6 months ago feeling that she may have been overmedicated. She proceeded to have anorexia without any focalizing abdominal pain or heartburn and no problems swallowing by history. She lost overall 60 pounds with 8 pounds within the last 2 weeks. She has been having some nausea with dry heaving the last 2 months by report from the ED but patient did not report this during my interview. She became tearful when talking about her anorexia and not being hungry and how her family has been responding to her issues blaming her psychiatric disease. She was scheduled to have imaging of her chest and abdomen in the near future but was brought to the ED because of progressive symptoms. In the ED she did have imaging which revealed bilateral pulmonary emboli which were basically asymptomatic without hypoxemia or significant tachycardia though she was tachycardic initially at 110 which responded to IV fluids. She had no chest discomfort with inspiration. Patient did have a finding in her troponins with no acute EKG changes with possibly secondary to her acute pulmonary emboli. Troponins will be trended with cardiac monitoring during her hospital stay. On imaging, she also was found to have a pancreatic tail mass which was suspicious for malignancy with metastatic lesions in the liver and lung. This would explain some of her symptoms with lack of pain because the location of the tumor in the tail of the pancreas. She was admitted for IV hydration and treatment for her acute pulmonary emboli with Lovenox at 1.5 mg/kg daily initiated but eventually patient would be placed on Eliquis. She is a DNR/DNI. Review of Systems Narrative: 13 point review of systems otherwise unrevealing or stable. [facility] All Active Problems (Updated 07/04/22 @ 13:55 by Xavi Morel) NSTEMI (non-ST elevated myocardial infarction) (Acute) Leukocytosis (leucocytosis) (Acute) Dehydration (Acute) Pancreatic mass (Acute) Metastatic cancer to lung (Acute) Pulmonary embolism, bilateral (Acute) Weight loss (Chronic) Anorexia (Chronic) Nausea (Acute) Unintentional weight loss (Acute) Medical History Anemia of chronic disease Chronic kidney disease Followed by [facility] Nephrology Essential hypertension Generalized anxiety disorder Hyperlipidemia Major depressive disorder Prediabetes Rheumatoid arthritis [place] [facility] [place]. Venkat Woodard Surgical History S/P appendectomy (~1960) Family History Mother , at 77 of alzheimers Alzheimer's dementia Heart disease Myocardial infarction Breast cancer In her 40s Father , at 88 Heart disease Stroke Brother , at 21 from cancer Cancer Unknown type Brother , at 5 from brain tumor Brain tumor Sister , at 49 of breast cancer Breast cancer Sister , in her 50s of [place] Heart disease Myocardial infarction Son No problems noted. Son No problems noted. Daughter Crohn's disease Colon cancer Daughter Crohn's disease Maternal Grandfather No problems noted. Maternal Grandmother No problems noted. Paternal Grandfather No problems noted. Paternal Grandmother No problems noted. Social History Smoking/Tobacco Use Status: Current every day Tobacco Type: cigarettes Second Hand Exposure: Yes Smoking risk assessment performed?: Yes Alcohol Intake: former Drug use: Never Substance use type: does not use Household members: spouse Pets and animals: Yes Pets and animals: cat(s) and dog(s) Do you think of yourself as: straight/heterosexual Current gender identity: female What is your relationship status?: How often do you talk on the phone with friends or family?: three or more times per week How often do you attend cheondoism or roman catholic services?: 1-3 times per year Do you belong to any clubs or organized social groups?: no Panel score (0-1 are the most socially isolated patients): 2 Sabiha/Hoahaoism: No preference Seatbelt use: always Drive intox 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 w/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 Do you feel safe at home: Yes Do you feel safe in your relationship?: Yes History History 3 Para Hx # Term Pregnancies Multiple births 1 Hx # Pregnancies Ectopic pregnancies AB induced Hx Number of Living Children 4 AB spontaneous Meds Allergies and Home Medications Allergies Allergy/AdvReac Type Severity Reaction Status Date / Time levofloxacin Allergy Rash/itchin Verified 07/03/22 18:24 g indomethacin AdvReac Intermediate GI Upset Verified 07/03/22 18:24 Home Medications Medication Instructions Recorded Confirmed Type losartan 50 mg tablet 75 mg PO DAILY #135 tab-caps 10/11/21 07/03/22 Rx rosuvastatin 10 mg tablet 10 mg PO DAILY #90 tabs 12/14/21 07/03/22 Rx amlodipine 5 mg tablet 5 mg PO DAILY 06/11/22 07/03/22 History aripiprazole 2 mg tablet 2 mg PO QAM 06/28/22 07/03/22 History escitalopram oxalate 10 mg tablet 10 mg PO DAILY 06/28/22 07/03/22 History lamotrigine 25 mg tablet See Rx Instructions PO QHS 06/28/22 07/03/22 History folic acid 1 mg tablet 1 mg PO DAILY 07/03/22 07/03/22 History hydroxychloroquine 200 mg tablet 200 mg PO DAILY 07/03/22 07/03/22 History lorazepam 1 mg tablet (Ativan) 1 mg PO BID PRN 07/04/22 07/04/22 History Exam Narrative Exam Narrative: General: Patient appears older than stated age, flattened affect with depressed mood becoming tearful at times when discussing her history. She is a alert and oriented x3. Moderate distress from her new diagnosis of possible tumor and being off her antidepressants. HEENT: Normocephalic, eyes with pupils equal and reactive light symmetrically, extraocular movement intact and sclera anicteric. Oropharynx with dry mucosa. Neck: Supple without JVD. Back: Kyphotic without CVA tenderness. Lungs: Clear to auscultation and percussion with no focalizing rales or rhonchi. Heart: Regular rate and rhythm with no appreciable murmur or gallop. Breast: Exam deferred. Abdomen: Normal contour, soft and nontender to palpation with no palpable hepatosplenomegaly or palpable masses. Bowel sounds positive all quadrants. Genitalia/rectal: Exam deferred. Extremity: Without clubbing, cyanosis or pitting edema. Fair capillary refill. Skin: Normal color, warm and dry. Neuro: Cranial nerves II through XII gross intact, no focalizing motor deficits and no tremor. Psych: Depressed mood with flattened affect. Tearful at times. No abnormal thought processes. Remote and recent memory grossly intact. Results Imaging Imaging Studies: Exam(s) CT CHEST PE ABD ? PELVIS W EXAM: ? CT CHEST PE ABD ? PELVIS W CLINICAL HISTORY: ? weight loss, nausea, r/o PE, mass. ? TECHNIQUE:? Imaging Protocol: ? Axial CT angiography was performed with multi-slice acquisition and multi-planar and/or 3D reconstructions. CONTRAST MATERIAL:? Intravenous: Omnipaque 350 Contrast volume:59 mL Oral: None COMPARISON:? CT CT ABDOMEN ? PELVIS W from 11/02/2019 FINDINGS: CHEST: PULMONARY ARTERIES: There are extensive bilateral pulmonary emboli.? This involves distal main pulmonary arteries bilaterally. LUNGS: Multiple areas of both nodular and non nodular infiltrate noted.? Peripheral pleural base infiltrates are most probably developing pulmonary infarctions but there is also evidence of what appears to be bilateral metastatic nodules.? Also some patchy infiltrates with may be infectious..? There are no pleural effusions. MEDIASTINUM: There is mild subcarinal adenopathy.? Visualized thyroid unremarkable. CARDIAC: Heart size is normal.? Small pericardial effusion noted maximum thickness 8 millimeters anteriorly.? The diameter of the thoracic aorta is upper normal.? No dissection.Ventricular ratio RV/LV slightly greater than 1, indicating element of right heart strain, this despite absence of reflux of IV contrast into the intrahepatic IVC. OSSEOUS: No significant osseous lesions.. ABDOMEN: There is no ascites. LIVER: There are concerning a patent lesions now evident suspicious for metastatic disease.? These are in the right hepatic lobe.? The largest of these measures approximately 2 x 2 cm.? Intrahepatic ducts are not dilated.? GALLBLADDER/BILIARY: No obvious gallbladder pathology.? CBD is not dilated. PANCREAS: There is now concerning mass in the pancreatic tail which measures 2 x 1.9 cm, not previously present.? Malignant appearance.? Pancreatic duct is not dilated.? Another smaller 7 x 6 millimeter hypodensity is seen the junction of the body and tail of the pancreas. SPLEEN: Spleen size is normal.? The mass in the pancreas tail is contiguous with the splenic hilum. ?Proximal aspect of the splenic vein in this region is not seen and may be thrombosed.? Portal vein confluence and main portal vein are patent as is the SMV. ADRENALS: Thickening of the adrenal glands noted but with minimal change from 2019. KIDNEYS:Benign cysts are again noted in both kidneys, largest again noted to be in the anterior cortex of the right kidney and measuring 1.4 x 1.3 cm. No solid renal masses evident. No calculi.? No hydronephrosis nor hydroureter.. ABDOMINAL AORTA: Abdominal aorta is calcified-atherosclerotic but without prominent aneurysm.? The left common iliac artery is noted to be occluded at its origin. LYMPH NODES: There is no retroperitoneal or para-aortic adenopathy.? There is a density on the left side of the aorta which is probably a thrombosed left gonadal vein. ABDOMINAL WALL/GI: No evidence of significant anterior abdominal wall hernia.? No bowel obstruction. PELVIS:? LYMPH NODES: There is no intrapelvic nor inguinal adenopathy. GI: No evidence of appendicitis.Sigmoid diverticuli evident.? No obvious acute diverticulitis.? Diverticula also noted in the descending-left colon. URINARY BLADDER: No calculi nor masses evident REPRODUCTIVE: Uterus size age-appropriate.? Uterus is anteverted.? No significant abnormal adnexal masses and no free fluid in the pelvis. OSSEOUS: There is a nonexpansile sclerotic bone density in the left ischial tuberosity of the lower pelvis which is possibly a sclerotic metastatic lesion as it was not evident on the prior CT scan of October 2019.? No other focal osseous findings.? No fractures. No fractures.? Mild degenerative anterolisthesis L4 upon L5 mild disc space narrowing at this level. IMPRESSION: 1. Extensive bilateral central pulmonary emboli.? Right heart strain noted. 2. Multi level bilateral patchy lung infiltrates as well as lung nodules.? Consider pulmonary infarctions, infection, and metastatic disease.? There are no pleural effusions. 3. There is an ominous mass in the pancreatic tail as described above, contiguous with the splenic hilum.? This has malignant appearance and appears to be associated with thrombosis of the adjacent aspect of the splenic vein.? The portal vein confluence and main portal vein are patent. 4. Multiple metastatic appearing lesions in the liver, predominately in the right hepatic lobe.? These are most probably related to the pancreatic finding. 5. Small sclerotic density in the left ischial tuberosity which may be a metastatic osseous lesion, given that it was not evident on the prior CT scan of 11/02/2019.? No other bone lesions identified. Labs Labs: Laboratory Results - last 24 hr 07/03/22 23:35 Troponin I Cancelled
== END ==
PROVIDERS: PCP Nurse Practitioner Family; Visit Provider Nurse Practitioner Family
CPT/HCPCS: 99223